=== PATIENT | male | born 1960 | race Caucasian/White ===

== ENCOUNTER 2021-05-20 22:10 | Inpatient (IN) | payer OTHER ==
--- NOTE | 2021-05-20 23:24 | Emergency Department Report ---
ED Shortness of Breath HPI - General Chief Complaint: Dyspnea/Respdistress Stated Complaint: SHORTNESS OF BREATH Time Seen by Provider: 05/20/21 23:19 Source: patient, EMS, old records reviewed (No previous medical record available for review) Mode of arrival: Stretcher Limitations: No Limitations - History of Present Illness Initial Comments: 60-year-old male with a past medical history morbid obesity, CHF, hypertension, recently diagnosed renal insufficiency, and sleep apnea (CPAP at night) presents to the hospital complaining of shortness of breath x1 day. Patient experiencing dyspnea worse on exertion. Patient called EMS from work. EMS reports room air saturation in low 90s. Patient placed on supplemental oxygen with improvement in oxygen saturation, shortness of breath, and chest tightness. Patient has been compliant with his medications. He states he was last admitted to in January 2021 to [facility] and underwent cardiac work-up including stress testing. He was diagnosed with CHF and denies diagnosis of ischemia. His physicians are affiliated with [facility]. He is vaccinated for Covid and has scheduled a booster this week. He denies fever. Current meds as per patient include: Hydralazine 50 mg 3 times daily Carvedilol 25 mg twice daily Metoprolol 1000 mg twice daily Aspirin 81 mg daily Spironolactone 25 daily Losartan 100 mg daily Glipizide 5 mg daily - Related Data Allergies Allergy/AdvReac Type Severity Reaction Status Date / Time No Known Allergies Allergy Verified 05/20/21 23:05 ED Review of Systems ROS: Stated complaint: SHORTNESS OF BREATH Other details as noted in HPI Comment: All other systems reviewed and negative ED Past Medical Hx - Past Medical History Hx Hypertension: Yes Hx Congestive Heart Failure: Yes Hx Diabetes: Yes ED Physical Exam - General Limitations: No Limitations - Other Other exam information: General: No acute distress Head: Atraumatic Eyes: normal appearance ENT: Moist mucous membranes Neck: Normal appearance, no midline tenderness Chest: Clear to auscultation bilaterally CV: Regular rate and rhythm Abdomen: Soft, normal bowel sounds, nontender, nondistended, no rebound or guarding Back: Normal inspection Extremity: Normal inspection, full range of motion, trace lower extremity pitting edema Neuro: Alert O x 3, no facial asymmetry, speech clear, no gross motor sensory deficit Psych: Appropriate behavior Skin: No rash ED Course Vital Signs 05/20/21 05/21/21 05/21/21 23:07 00:00 00:54 Temperature 98.0 F Pulse Rate 111 H 120 H 115 H Respiratory 22 21 31 H Rate Blood Pressure Blood Pressure 174/108 179/114 194/144 [Left] O2 Sat by Pulse 98 91 91 Oximetry 05/21/21 05/21/21 05/21/21 01:28 02:05 03:53 Temperature Pulse Rate 100 H 101 H 106 H Respiratory 28 H 31 H Rate Blood Pressure 175/104 Blood Pressure 161/107 161/112 [Left] O2 Sat by Pulse 94 94 Oximetry - Consultations Consultation #1: 05/21/21 03:04 . Case discussed with Dr. Savage data integration developer vascular surgeon to determine if patient is a candidate for EKOS. Will evaluate patient during admission ED Medical Decision Making - Lab Data Result diagrams: 05/20/21 23:41 05/20/21 23:41 Lab Results 05/20/21 05/20/21 05/20/21 Range/Units 23:41 23:41 23:41 WBC 7.0 (4.5-11.0) K/mm3 RBC 4.55 (3.65-5.03) M/mm3 Hgb 12.4 (11.8-15.2) gm/dl Hct 39.6 (35.5-45.6) % MCV 87 (84-94) fl MCH 27 L (28-32) pg MCHC 32 (32-34) % RDW 15.4 H (13.2-15.2) % Plt Count 223 (140-440) K/mm3 Lymph % (Auto) 28.7 (13.4-35.0) % [place] % (Auto) 9.1 H (0.0-7.3) % Eos % (Auto) 2.4 (0.0-4.3) % Baso % (Auto) 0.5 (0.0-1.8) % Lymph # (Auto) 2.0 (1.2-5.4) K/mm3 [place] # (Auto) 0.6 (0.0-0.8) K/mm3 Eos # (Auto) 0.2 (0.0-0.4) K/mm3 Baso # (Auto) 0.0 (0.0-0.1) K/mm3 Seg Neutrophils % 59.3 (40.0-70.0) % Seg Neutrophils # 4.1 (1.8-7.7) K/mm3 PT 15.2 H (12.2-14.9) Sec. INR 1.08 (0.87-1.13) APTT 33.5 (24.2-36.6) Sec. Sodium 141 (137-145) mmol/L Potassium 4.4 (3.6-5.0) mmol/L Chloride 108.1 H (98-107) mmol/L Carbon Dioxide 19 L (22-30) mmol/L Anion Gap 18 mmol/L BUN 20 (9-20) mg/dL Creatinine 1.6 H (0.8-1.3) mg/dL Estimated GFR 45 ml/min BUN/Creatinine Ratio 13 % Glucose 118 H (75-100) mg/dL Calcium 9.5 (8.4-10.2) mg/dL Total Bilirubin 0.50 (0.1-1.2) mg/dL AST 25 (5-40) units/L ALT 17 (7-56) units/L Alkaline Phosphatase 97 (35-129) units/L Total Creatine Kinase 230 H (55-170) units/L CK-MB (CK-2) 2.3 (0.0-4.0) ng/mL CK-MB (CK-2) Rel Index 1.0 (0-4) Troponin T < 0.010 (0.00-0.029) ng/mL NT-Pro-B Natriuret Pep (0-900) pg/mL Total Protein 8.1 (6.3-8.2) g/dL Albumin 4.3 (3.9-5) g/dL Albumin/Globulin Ratio 1.1 % 05/20/21 Range/Units 23:41 WBC (4.5-11.0) K/mm3 RBC (3.65-5.03) M/mm3 Hgb (11.8-15.2) gm/dl Hct (35.5-45.6) % MCV (84-94) fl MCH (28-32) pg MCHC (32-34) % RDW (13.2-15.2) % Plt Count (140-440) K/mm3 Lymph % (Auto) (13.4-35.0) % [place] % (Auto) (0.0-7.3) % Eos % (Auto) (0.0-4.3) % Baso % (Auto) (0.0-1.8) % Lymph # (Auto) (1.2-5.4) K/mm3 [place] # (Auto) (0.0-0.8) K/mm3 Eos # (Auto) (0.0-0.4) K/mm3 Baso # (Auto) (0.0-0.1) K/mm3 Seg Neutrophils % (40.0-70.0) % Seg Neutrophils # (1.8-7.7) K/mm3 PT (12.2-14.9) Sec. INR (0.87-1.13) APTT (24.2-36.6) Sec. Sodium (137-145) mmol/L Potassium (3.6-5.0) mmol/L Chloride (98-107) mmol/L Carbon Dioxide (22-30) mmol/L Anion Gap mmol/L BUN (9-20) mg/dL Creatinine (0.8-1.3) mg/dL Estimated GFR ml/min BUN/Creatinine Ratio % Glucose (75-100) mg/dL Calcium (8.4-10.2) mg/dL Total Bilirubin (0.1-1.2) mg/dL AST (5-40) units/L ALT (7-56) units/L Alkaline Phosphatase (35-129) units/L Total Creatine Kinase (55-170) units/L CK-MB (CK-2) (0.0-4.0) ng/mL CK-MB (CK-2) Rel Index (0-4) Troponin T (0.00-0.029) ng/mL NT-Pro-B Natriuret Pep 462.9 (0-900) pg/mL Total Protein (6.3-8.2) g/dL Albumin (3.9-5) g/dL Albumin/Globulin Ratio % - EKG Data -: EKG Interpreted by Tn EKG shows normal: sinus rhythm, intervals (QTC 450), QRS complexes (QRS duration 82), ST-T waves (no stemi) Rate: tachycardia (120) - EKG Data When compared to previous EKG there are: previous EKG unavailable - Radiology Data Radiology results: report reviewed CHEST 1 VIEW 05/20/2021 11:10 PM INDICATION / CLINICAL INFORMATION: Dyspnea. COMPARISON: None available. FINDINGS: SUPPORT DEVICES: None. HEART / MEDIASTINUM: No significant abnormality. LUNGS / PLEURA: There is prompt the right hilum with rounded density measuring 4.5 cm. Mild increased pulmonary vascularity No pneumothorax. ADDITIONAL FINDINGS: No significant additional findings. IMPRESSION: 1. Rounded density in the right hilum could represent vascularity however could also represent right hilar mass or adenopathy. This area measures 4.5 cm. Follow-up with CT is recommended. CTA CHEST WITH CONTRAST INDICATION / CLINICAL INFORMATION: Abnormal CXR, Pt complains of S.O.B.. TECHNIQUE: Axial CT images were obtained through the chest after injection of IV contrast. 3 plane MIP and/or 3D reconstructions were produced. All CT scans at this location are performed using CT dose reduction for ALARA by means of automated exposure control. COMPARISON: None available. FINDINGS: There is extensive thrombus within bilateral pulmonary arteries extending from the distal main pulmonary arteries into the pulmonary artery branches in the upper and lower lungs. No significant cardiomegaly or definite cardiac strain. No focal consolidation. Minimal atelectasis in left lower lung. No dominant adenopathy. No acute bone findings IMPRESSION: 1. Extensive bilateral PTE's - Medical Decision Making 60-year-old male presents to the hospital complaining of shortness of breath x1 day worse with exertion. Patient does have mild tachycardia. Patient's O2 sat was in the high 80s on 4 L nasal cannula oxygen. On 5 L nasal cannula oxygen O2 sat is 93 to 94%. CT angiogram confirms bilateral central pulmonary emboli. Heparin drip initiated. Case discussed with vascular surgeon who will evaluate patient in a.m. IV labetalol provided for hypertension. Patient states he takes a muscle relaxant for chronic left shoulder issues and was provided a dose of Flexeril Critical Care Time: Yes Critical care time in (mins) excluding proc time.: 35 Critical care attestation.: If time is entered above; I have spent that time in minutes in the direct care of this critically ill patient, excluding procedure time. Critical Care Time: 35 Minutes of critical care time excluding procedures were used in the care of the patient. I came immediately to the bedside upon patient's arrival. I obtained history from EMS at the bedside. I discussed treatment plan with the nursing team members. Patient required multiple interventions and reassessments. Vascular surgery consulted hospitalist to admit ED Disposition Clinical Impression: Acute respiratory failure, Bilateral pulmonary embolism, Morbid obesity, Sleep apnea, Uncontrolled hypertension, History of CHF (congestive heart failure), CRI (chronic renal insufficiency) Disposition: ADMITTED INPATIENT Is pt being admited?: Yes Instructions: Hypertension (ED) Time of Disposition: 03:06 (Dr Tate/hospitalist)
[2021-05-21 00:08] LABS: Basophils % (Auto) 0.5 % (0.0-1.8); Eosinophils # (Auto) 0.2 K/mm3 (0.0-0.4); Eosinophils % (Auto) 2.4 % (0.0-4.3); Hematocrit 39.6 % (35.5-45.6); Hemoglobin 12.4 gm/dl (11.8-15.2); Lymphocytes % (Auto) 28.7 % (13.4-35.0); Mean Corpuscular HGB Conc 32 % (32-34); Mean Corpuscular Volume 87 fl (84-94); Monocytes # (Auto) 0.6 K/mm3 (0.0-0.8); Monocytes % (Auto) 9.1 % (0.0-7.3); Platelet Count 223 K/mm3 (140-440); Red Blood Count 4.55 M/mm3 (3.65-5.03); Red Cell Distribution Width 15.4 % (13.2-15.2)
--- NOTE | 2021-05-21 00:18 | XRay Report ---
CHEST 1 VIEW 05/20/2021 11:10 PM INDICATION / CLINICAL INFORMATION: Dyspnea. COMPARISON: None available. FINDINGS: SUPPORT DEVICES: None. HEART / MEDIASTINUM: No significant abnormality. LUNGS / PLEURA: There is prompt the right hilum with rounded density measuring 4.5 cm. Mild increased pulmonary vascularity No pneumothorax. ADDITIONAL FINDINGS: No significant additional findings. IMPRESSION: 1. Rounded density in the right hilum could represent vascularity however could also represent right hilar mass or adenopathy. This area measures 4.5 cm. Follow-up with CT is recommended. Signer Name: Cecilio Becerra MD Signed: 05/21/2021 12:13 AM Workstation Name: [id number]
[2021-05-21 00:27] LABS: INR 1.08 (0.87-1.13)
[2021-05-21 00:28] LABS: Partial Thromboplastin Time 33.5 Sec. (24.2-36.6)
[2021-05-21 02:05] LABS: Alanine Aminotransferase 17 units/L (7-56); Albumin 4.3 g/dL (3.9-5); BUN/Creatinine Ratio 13; Blood Urea Nitrogen 20 mg/dL (9-20); Calcium 9.5 mg/dL (8.4-10.2); Creatine Kinase MB 2.3 ng/mL (0.0-4.0); Hemolysis Index 6
[2021-05-21] MEDS ORDERED: HEPARIN 10,000 UNITS/10 ML VIAL IV ONE (02:51)
--- NOTE | 2021-05-21 02:56 | Cat Scan Report ---
CTA CHEST WITH CONTRAST INDICATION / CLINICAL INFORMATION: Abnormal CXR, Pt complains of S.O.B.. TECHNIQUE: Axial CT images were obtained through the chest after injection of IV contrast. 3 plane SC P and/or 3D reconstructions were produced. All CT scans at this location are performed using CT dose reduction for ALARA by means of automated exposure control. COMPARISON: None available. FINDINGS: There is extensive thrombus within bilateral pulmonary arteries extending from the distal main pulmon marilin arteries into the pulmonary artery branches in the upper and lower lungs. No significant cardiome carolee or definite cardiac strain. No focal consolidation. Minimal atelectasis in left lower lung. No d ominant adenopathy. No acute bone findings IMPRESSION: 1. Extensive bilateral PTE's IMPORTANT FINDING: Time of Communication (GLOBAL PROFESSIONAL/CDT): 151 Licensed Practitioner Receiving Report: 155 Signer Name: Cecilio Becerra MD Signed: 05/21/2021 2:51 AM Workstation Name: [id number]
[2021-05-21] MEDS ORDERED: CYCLOBENZAPRINE 10 MG TAB PO ONE (03:00)
[2021-05-21] MEDS: HEPARIN/ 0.45% NACL DRIP 25,000 UNIT/500 ML BAG IV SCH ×2 (03:15→21:02)
[2021-05-21] MEDS ORDERED: ALBUTEROL 2.5 MG/3 ML NEBU IH PRN (04:29)
[2021-05-21] MEDS ORDERED: DEXTROSE 50% IN WATER (25GM) 50 ML SYRINGE IV PRN (04:29)
[2021-05-21] MEDS ORDERED: ONDANSETRON 4 MG/2 ML INJ IV PRN (04:29)
--- NOTE | 2021-05-21 04:39 | History and Physical Report ---
History of Present Illness Date of examination: 05/21/21 Date of admission: 05/21/21 Chief complaint: Shortness of breath History of present illness: 60-year-old male with a past medical history morbid obesity, CHF, hypertension, recently diagnosed renal insufficiency, and sleep apnea (CPAP at night) presents to the hospital complaining of shortness of breath x1 day. Patient experiencing dyspnea worse on exertion. Patient called EMS from work. EMS reports room air saturation in low 90s. Patient placed on supplemental oxygen with improvement in oxygen saturation, shortness of breath, and chest tightness. Patient has been compliant with his medications. He states he was last admitted to in January 2021 to [facility] and underwent cardiac work-up including stress testing. He was diagnosed with CHF and denies diagnosis of ischemia. His physicians are affiliated with [facility]. He is vaccinated for Covid and has scheduled a booster this week. He denies fever. patient does have mild tachycardia. Patient's O2 sat was in the high 80s on 4 L nasal cannula oxygen. On 5 L nasal cannula oxygen O2 sat is 93 to 94%. CT angiogram confirms bilateral central pulmonary emboli. Heparin drip initiated. Case discussed with vascular surgeon who will evaluate patient in a.m. IV labetalol provided for hypertension. Past History Past Medical History: diabetes, heart failure, hypertension, other (Morbid obesity, sleep apnea) Medications and Allergies Allergies Allergy/AdvReac Type Severity Reaction Status Date / Time No Known Allergies Allergy Verified 05/20/21 23:05 Active Meds: Active Medications Heparin Sodium/Sodium Chloride (Heparin/ 0.45% Nacl-25,000 Unit/500 Ml) 25,000 unit in 500 mls @ 30 mls/hr IV TITR YENNI; Protocol Last Admin: 05/21/21 03:15 Dose: 1,500 units/hr, 30 mls/hr Review of Systems All systems: negative Ears, nose, mouth and throat: odynophagia Cardiovascular: orthopnea, shortness of breath, high blood pressure Respiratory: shortness of breath, dyspnea on exertion, wheezing, snoring, other (Sleep apnea) Exam - Constitutional Vitals: Temp Pulse Resp BP Pulse Ox 98.0 F 106 H 31 H 161/112 94 05/20/21 23:07 05/21/21 03:53 05/21/21 03:53 05/21/21 03:53 05/21/21 03:53 General appearance: Present: no acute distress, well-nourished - EENT Eyes: Present: PERRL ENT: hearing intact, clear oral mucosa - Neck Neck: Present: supple, normal ROM - Respiratory Respiratory effort: normal Respiratory: bilateral: rales - Cardiovascular Heart Sounds: Present: S1 & S2. Absent: rub, click - Extremities Extremities: pulses symmetrical Extremity abnormal: edema Peripheral Pulses: within normal limits - Abdominal General gastrointestinal: Present: soft, non-tender, non-distended, normal bowel sounds Male genitourinary: Present: normal - Integumentary Integumentary: Present: clear, warm, dry - Musculoskeletal Musculoskeletal: gait normal, strength equal bilaterally - Psychiatric Psychiatric: appropriate mood/affect, intact judgment & insight - Neurologic Neurologic: CNII-XII intact, moves all extremities HEART Score - HEART Score Troponin: Troponin T 0.014 ng/mL (0.00-0.029) 05/21/21 02:53 Results - Labs CBC & Chem 7: 05/20/21 23:41 05/20/21 23:41 Labs: Laboratory Last Values WBC 7.0 K/mm3 (4.5-11.0) 05/20/21 23:41 RBC 4.55 M/mm3 (3.65-5.03) 05/20/21 23:41 Hgb 12.4 gm/dl (11.8-15.2) 05/20/21 23:41 Hct 39.6 % (35.5-45.6) 05/20/21 23:41 MCV 87 fl (84-94) 05/20/21 23:41 MCH 27 pg (28-32) L 05/20/21 23:41 MCHC 32 % (32-34) 05/20/21 23:41 RDW 15.4 % (13.2-15.2) H 05/20/21 23:41 Plt Count 223 K/mm3 (140-440) 05/20/21 23:41 Lymph % (Auto) 28.7 % (13.4-35.0) 05/20/21 23:41 Bent % (Auto) 9.1 % (0.0-7.3) H 05/20/21 23:41 Eos % (Auto) 2.4 % (0.0-4.3) 05/20/21 23:41 Baso % (Auto) 0.5 % (0.0-1.8) 05/20/21 23:41 Lymph # (Auto) 2.0 K/mm3 (1.2-5.4) 05/20/21 23:41 Bent # (Auto) 0.6 K/mm3 (0.0-0.8) 05/20/21 23:41 Eos # (Auto) 0.2 K/mm3 (0.0-0.4) 05/20/21 23:41 Baso # (Auto) 0.0 K/mm3 (0.0-0.1) 05/20/21 23:41 Seg Neutrophils % 59.3 % (40.0-70.0) 05/20/21 23:41 Seg Neutrophils # 4.1 K/mm3 (1.8-7.7) 05/20/21 23:41 PT 15.2 Sec. (12.2-14.9) H 05/20/21 23:41 INR 1.08 (0.87-1.13) 05/20/21 23:41 APTT 33.5 Sec. (24.2-36.6) 05/20/21 23:41 Sodium 141 mmol/L (137-145) 05/20/21 23:41 Potassium 4.4 mmol/L (3.6-5.0) 05/20/21 23:41 Chloride 108.1 mmol/L (98-107) H 05/20/21 23:41 Carbon Dioxide 19 mmol/L (22-30) L 05/20/21 23:41 Anion Gap 18 mmol/L 05/20/21 23:41 BUN 20 mg/dL (9-20) 05/20/21 23:41 Creatinine 1.6 mg/dL (0.8-1.3) H 05/20/21 23:41 Estimated GFR 45 ml/min 05/20/21 23:41 BUN/Creatinine Ratio 13 % 05/20/21 23:41 Glucose 118 mg/dL (75-100) H 05/20/21 23:41 Calcium 9.5 mg/dL (8.4-10.2) 05/20/21 23:41 Total Bilirubin 0.50 mg/dL (0.1-1.2) 01/24/22 23:41 AST 25 units/L (5-40) 05/20/21 23:41 ALT 17 units/L (7-56) 05/20/21 23:41 Alkaline Phosphatase 97 units/L (35-129) 05/20/21 23:41 Total Creatine Kinase 230 units/L (55-170) H 05/20/21 23:41 CK-MB (CK-2) 2.3 ng/mL (0.0-4.0) 05/20/21 23:41 CK-MB (CK-2) Rel Index 1.0 (0-4) 05/20/21 23:41 Troponin T 0.014 ng/mL (0.00-0.029) 05/21/21 02:53 NT-Pro-B Natriuret Pep 462.9 pg/mL (0-900) 05/20/21 23:41 Total Protein 8.1 g/dL (6.3-8.2) 05/20/21 23:41 Albumin 4.3 g/dL (3.9-5) 05/20/21 23:41 Albumin/Globulin Ratio 1.1 % 05/20/21 23:41 - Imaging and Cardiology Chest x-ray: report reviewed CT scan - chest: report reviewed Assessment and Plan VTE prophylaxis?: Chemical Plan of care discussed with patient/family: Yes - Patient Problems (1) Acute respiratory failure Current Visit: Yes Status: Acute Plan to address problem: Admit to the IMCU. Oxygen via nasal cannula 3 to 5 L/min. DuoNeb by nebulizer every 4 hours. Albuterol via nebulizer every 4 hours as needed. Lasix 40 mg IV daily. Echocardiogram. Heparin drip. Vascular surgery evaluation (2) Bilateral pulmonary embolism Current Visit: Yes Status: Acute Plan to address problem: Oxygen via nasal cannula 3 to 5 L/min. DuoNeb by nebulizer every 4 hours. Albuterol via nebulizer every 4 hours as needed. Echocardiogram. Heparin drip. Vascular surgery evaluation (3) CRI (chronic renal insufficiency) Current Visit: Yes Status: Acute Plan to address problem: Avoid nephrotoxic drugs. Renally dose medication. Recheck BMP in the morning if needed will consult nephrology (4) History of CHF (congestive heart failure) Current Visit: Yes Status: Acute Plan to address problem: Fluid restriction. Daily weight. Maintain input output. Echocardiogram. Lasix 40 mg IV daily. Cardiology evaluation (5) Morbid obesity Current Visit: Yes Status: Acute Plan to address problem: Patient counseled regarding weight reduction. Outpatient follow-up with bariatric surgery (6) Sleep apnea Current Visit: Yes Status: Acute Plan to address problem: Oxygen via nasal cannula 3 to 5 L/min. DuoNeb by nebulizer every 4 hours. Albuterol via nebulizer every 4 hours as needed. (7) Uncontrolled hypertension Current Visit: Yes Status: Acute Plan to address problem: IV labetalol for hypertension. Lisinopril 5 mg p.o. daily. Continue home medication (8) DVT prophylaxis Current Visit: Yes Status: Acute Plan to address problem: Patient is on heparin drip per DVT prophylaxis. Pepcid 20 mg p.o. twice daily for GI prophylaxis. Patient is a full code
[2021-05-21] MEDS ORDERED: hydrALAZINE 20 MG/1 ML INJ IV PRN (04:41)
[2021-05-21] MEDS: INSULIN LISPRO 100 UNIT/ML SUB-Q SCH ×4 (08:17→21:09)
[2021-05-21] MEDS ORDERED: HEPARIN 10,000 UNITS/10 ML VIAL IV PRN (08:43)
--- NOTE | 2021-05-21 09:00 | Electrocardiograph Report ---
[facility] Test Date: 2021-05-20 Test Time: 23:38:35 Pat Name: KARIN CALLOWAY Department: Room: A264 1 Gender: M Plater Barrel: MARKUS : 1960 Requested By: HALEIGH HOLLOWAY Order Number: [id number] Reading MD: Durga Penn Measurements Intervals [place] Rate: 120 P: 53 TX: 140 QRS: 97 QRSD: 82 T: 25 QT: 318 QTc: 450 Interpretive Statements Sinus tachycardia nonspecific st-t No previous ECG available for comparison Electronically Signed On 05-21-2021 9:00:00 EST by Durga Penn
[2021-05-21] MEDS ORDERED: SODIUM CHLORIDE 0.9% 50 ML IVPB IV PRN (09:02)
[2021-05-21] MEDS ORDERED: LISINOPRIL 5 MG TAB PO SCH (10:00)
[2021-05-21] MEDS: FAMOTIDINE 20 MG TAB PO SCH ×2 (10:10→21:02)
[2021-05-21] MEDS: FUROSEMIDE 40 MG/4 ML INJ IV SCH ×2 (10:10→10:26)
[2021-05-21] MEDS: MORPHINE 2 MG/1 ML INJ IV PRN (10:10)
[2021-05-21] MEDS: ACETAMINOPHEN 325 MG TAB PO PRN (10:23)
[2021-05-21] MEDS: METOPROLOL TARTRATE 50 MG TAB PO SCH ×2 (11:36→21:02)
--- NOTE | 2021-05-21 13:45 | Progress Note ---
Assessment and Plan Assessment and plan: History of present illness: 60-year-old male with a past medical history morbid obesity, CHF, hypertension, recently diagnosed renal insufficiency, and sleep apnea (CPAP at night) presents to the hospital complaining of shortness of breath x1 day. Patient experiencing dyspnea worse on exertion. Patient called EMS from work. EMS reports room air saturation in low 90s. Patient placed on supplemental oxygen with improvement in oxygen saturation, shortness of breath, and chest tightness. Patient has been compliant with his medications. He states he was last admitted to in January 2021 to [facility] and underwent cardiac work-up including stress testing. He was diagnosed with CHF and denies diagnosis of ischemia. His physicians are affiliated with [facility]. He is vaccinated for Covid and has scheduled a booster this week. He denies fever. Admitted to [facility] Hospital Course: 05/21: Continue heparin gtt, pending ECHO. CT angiogram appears to demonstrate some right heart strain on my read but will await ECHO. Patient hemodynamically stable and in no distress. Pending cardiology and vascular evaluation. Assessment and Plan: (1) Acute respiratory failure with hypoxia Current Visit: Yes Status: Acute Plan to address problem: Oxygen via nasal cannula, wean as sats tolerate. CT angiogram confirms bilateral central pulmonary emboli. DuoNeb by nebulizer every 4 hours. Albuterol via nebulizer every 4 hours as needed. Lasix 40 mg IV daily. Echocardiogram. Heparin drip. Vascular surgery evaluation Cardiology consultation (2) Bilateral pulmonary embolism Current Visit: Yes Status: Acute Plan to address problem: Oxygen via nasal cannula 3 to 5 L/min. CT angiogram confirms bilateral central pulmonary emboli. DuoNeb by nebulizer every 4 hours. Albuterol via nebulizer every 4 hours as needed. Echocardiogram. Heparin drip. Vascular surgery evaluation Cardiology consultation (3) Chronic Kidney Disease Current Visit: Yes Status: Acute Plan to address problem: Avoid nephrotoxic drugs. Renally dose medication. Recheck BMP in the morning if needed will consult nephrology (4) History of CHF (congestive heart failure) Current Visit: Yes Status: Acute Plan to address problem: Fluid restriction. Daily weight. Maintain input output. Echocardiogram. Lasix 40 mg IV daily. Cardiology evaluation (5) Morbid obesity Current Visit: Yes Status: Acute Plan to address problem: Patient counseled regarding weight reduction. Outpatient follow-up with bariatric surgery (6) Sleep apnea Current Visit: Yes Status: Acute Plan to address problem: Oxygen via nasal cannula 3 to 5 L/min. DuoNeb by nebulizer every 4 hours. Albuterol via nebulizer every 4 hours as needed. (7) Uncontrolled hypertension Current Visit: Yes Status: Acute Plan to address problem: IV labetalol for hypertension. Lisinopril 5 mg p.o. daily. Continue home medication (8) DVT prophylaxis Current Visit: Yes Status: Acute Plan to address problem: Patient is on heparin drip per DVT prophylaxis. Pepcid 20 mg p.o. twice daily for GI prophylaxis. Patient is a full code #Advance care planning Disease education conducted, care plan discussed, diagnoses discussed, prognosis discussed, patient is full code, patient acknowledges understanding and agree with care plan, +30 minutes. Dispo: IMCU The high probability of a clinically significant, sudden or life threatening deterioration of the [cardiac, pulmonary] system(s) required my full and direct attention, intervention and personal management. The aggregate critical care time was [60] minutes. This time is in addition to time spent performing reported procedures but includes the following: [x] Data Review and interpretation [x] Patient assessment and monitoring of vital signs [x] Documentation [x] Medication orders and management History Interval history: No complaints on my encounter. Remains on nasal cannula. Vitals appeared to be stable on bedside monitor. Patient questions answered to satisfaction. Hospitalist Physical - Physical exam Narrative exam: General appearance: Present: no acute distress, well-nourished, morbid obesity, currently on nasal cannula. - EENT Eyes: Present: PERRL ENT: hearing intact, clear oral mucosa - Neck Neck: Present: supple, normal ROM - Respiratory Respiratory effort: normal Respiratory: bilateral: rales - Cardiovascular Heart Sounds: Present: S1 & S2. Absent: rub, click - Extremities Extremities: pulses symmetrical Extremity abnormal: edema Peripheral Pulses: within normal limits - Abdominal General gastrointestinal: Present: soft, non-tender, non-distended, normal bowel sounds Male genitourinary: Present: normal - Integumentary Integumentary: Present: clear, warm, dry - Musculoskeletal Musculoskeletal: gait normal, strength equal bilaterally - Psychiatric Psychiatric: appropriate mood/affect, intact judgment & insight - Neurologic Neurologic: CNII-XII intact, moves all extremities - Constitutional Vitals: Temp Pulse Resp BP Pulse Ox 97.4 F L 89 18 175/108 95 05/21/21 08:00 05/21/21 13:00 05/21/21 13:00 05/21/21 13:00 05/21/21 13:00 General appearance: Present: no acute distress, well-nourished HEART Score - HEART Score Troponin: Troponin T 0.028 ng/mL (0.00-0.029) 05/21/21 05:09 Results - Labs CBC & Chem 7: 05/20/21 23:41 05/20/21 23:41 Labs: Laboratory Last Values WBC 7.0 K/mm3 (4.5-11.0) 05/20/21 23:41 RBC 4.55 M/mm3 (3.65-5.03) 05/20/21 23:41 Hgb 12.4 gm/dl (11.8-15.2) 05/20/21 23:41 Hct 39.6 % (35.5-45.6) 05/20/21 23:41 MCV 87 fl (84-94) 05/20/21 23:41 MCH 27 pg (28-32) L 05/20/21 23:41 MCHC 32 % (32-34) 05/20/21 23:41 RDW 15.4 % (13.2-15.2) H 05/20/21 23:41 Plt Count 223 K/mm3 (140-440) 05/20/21 23:41 Lymph % (Auto) 28.7 % (13.4-35.0) 05/20/21 23:41 [place] % (Auto) 9.1 % (0.0-7.3) H 05/20/21 23:41 Eos % (Auto) 2.4 % (0.0-4.3) 05/20/21 23:41 Baso % (Auto) 0.5 % (0.0-1.8) 05/20/21 23:41 Lymph # (Auto) 2.0 K/mm3 (1.2-5.4) 05/20/21 23:41 [place] # (Auto) 0.6 K/mm3 (0.0-0.8) 05/20/21 23:41 Eos # (Auto) 0.2 K/mm3 (0.0-0.4) 05/20/21 23:41 Baso # (Auto) 0.0 K/mm3 (0.0-0.1) 05/20/21 23:41 Seg Neutrophils % 59.3 % (40.0-70.0) 05/20/21 23:41 Seg Neutrophils # 4.1 K/mm3 (1.8-7.7) 05/20/21 23:41 PT 15.2 Sec. (12.2-14.9) H 05/20/21 23:41 INR 1.08 (0.87-1.13) 05/20/21 23:41 APTT 33.5 Sec. (24.2-36.6) 05/20/21 23:41 Sodium 141 mmol/L (137-145) 05/20/21 23:41 Potassium 4.4 mmol/L (3.6-5.0) 05/20/21 23:41 Chloride 108.1 mmol/L (98-107) H 05/20/21 23:41 Carbon Dioxide 19 mmol/L (22-30) L 05/20/21 23:41 Anion Gap 18 mmol/L 05/20/21 23:41 BUN 20 mg/dL (9-20) 05/20/21 23:41 Creatinine 1.6 mg/dL (0.8-1.3) H 05/20/21 23:41 Estimated GFR 45 ml/min 05/20/21 23:41 BUN/Creatinine Ratio 13 % 05/20/21 23:41 Glucose 118 mg/dL (75-100) H 05/20/21 23:41 POC Glucose 107 mg/dL (70-105) H 05/21/21 12:30 Calcium 9.5 mg/dL (8.4-10.2) 05/20/21 23:41 Total Bilirubin 0.50 mg/dL (0.1-1.2) 05/20/21 23:41 AST 25 units/L (5-40) 05/20/21 23:41 ALT 17 units/L (7-56) 05/20/21 23:41 Alkaline Phosphatase 97 units/L (35-129) 05/20/21 23:41 Total Creatine Kinase 230 units/L (55-170) H 05/20/21 23:41 CK-MB (CK-2) 2.3 ng/mL (0.0-4.0) 05/20/21 23:41 CK-MB (CK-2) Rel Index 1.0 (0-4) 05/20/21 23:41 Troponin T 0.028 ng/mL (0.00-0.029) 05/21/21 05:09 NT-Pro-B Natriuret Pep 462.9 pg/mL (0-900) 05/20/21 23:41 Total Protein 8.1 g/dL (6.3-8.2) 05/20/21 23:41 Albumin 4.3 g/dL (3.9-5) 05/20/21 23:41 Albumin/Globulin Ratio 1.1 % 05/20/21 23:41 Active Medications - Current Medications Current Medications: Generic Name Dose Route Start Last Admin Trade Name Freq PRN Reason Stop Dose Admin Acetaminophen 650 mg 05/21/21 04:29 05/21/21 10:23 Acetaminophen 325 Mg Tab PO 650 mg Q4H PRN Administration Pain MILD(1-3)/Fever >100.5/KENNEDY Albuterol 2.5 mg 05/21/21 04:29 Albuterol 2.5 Mg/3 Ml Nebu IH Q4HRT PRN Shortness Of Breath Albuterol/Ipratropium 1 ampul 05/21/21 08:00 Ipratropium/Albuterol Sulfate 3 Ml Ampul.Neb IH Q6HRT YENNI Dextrose 0 ml 05/21/21 04:29 Dextrose 50% In Water (25gm) 50 Ml Syringe IV Q30MIN PRN Hypoglycemia Protocol Famotidine 20 mg 05/21/21 10:00 05/21/21 10:10 Famotidine 20 Mg Tab PO 20 mg BID YENNI Administration Heparin Sodium (Porcine) 5,000 unit 05/21/21 08:43 Heparin 10,000 Units/10 Ml Vial IV Q6H PRN Anti-Xa Assay < 0.1 units/ml Hydralazine HCl 50 mg 05/21/21 14:00 Hydralazine 25 Mg Tab PO Q8HR YENNI Hydromorphone HCl 0.5 mg 05/21/21 04:29 Hydromorphone 1 Mg/1 Ml Inj IV Q3H PRN Pain , Severe (7-10) Heparin Sodium/Sodium Chloride 25,000 unit in 500 mls @ 30 mls/hr 05/21/21 03:00 05/21/21 03:15 Heparin/ 0.45% Nacl-25,000 Unit/500 Ml IV 1,500 units/hr TITR YENNI 30 mls/hr Administration Protocol 1,500 UNITS/HR Insulin Human Lispro 0 unit 05/21/21 07:30 05/21/21 08:17 Insulin Lispro 100 Unit/Ml SUB-Q Not Given ACHS YENNI Protocol Isosorbide Mononitrate 30 mg 05/21/21 11:00 05/21/21 11:36 Isosorbide Mononitrate Er 30 Mg Tab PO 30 mg QDAY YENNI Administration Labetalol HCl 10 mg 05/21/21 04:42 05/21/21 10:36 Labetalol 20 Mg/4 Ml Inj IV 10 mg Q6H PRN Administration Blood Pressure Metoprolol Tartrate 50 mg 05/21/21 11:00 05/21/21 11:36 Metoprolol Tartrate 50 Mg Tab PO 50 mg BID YENNI Administration Morphine Sulfate 2 mg 05/21/21 04:29 Morphine 2 Mg/1 Ml Inj IV Q4H PRN Pain, Moderate (4-6) Ondansetron HCl 4 mg 05/21/21 04:29 Ondansetron 4 Mg/2 Ml Inj IV Q8H PRN Nausea And Vomiting Sodium Chloride 10 ml 05/21/21 10:00 05/21/21 10:37 Sodium Chloride 0.9% 10 Ml Flush Syringe IV 10 ml BID YENNI Administration Sodium Chloride 10 ml 05/21/21 04:29 Sodium Chloride 0.9% 10 Ml Flush Syringe IV PRN PRN LINE FLUSH Sodium Chloride 10 ml 05/21/21 09:02 Sodium Chloride 0.9% 50 Ml Ivpb IV PRN PRN FLUSH Nutrition/Malnutrition Assess - Dietary Evaluation Nutrition/Malnutrition Findings: Nutrition Notes Start: 05/21/21 11:45 Freq: Status: Active Protocol: Document 05/21/21 11:45 ABIGAIL (Rec: 05/21/21 11:51 ABIGAIL [id number]) Nutrition Notes Need for Assessment generated from: MD Order,Education Initial or Follow up Brief Note Current Diagnosis CKD(stage I-IV),Hypertension, Respiratory Failure Other Pertinent Diagnosis Bilateral pulmonary embolism, CHF. Current Diet Cardiac/Consistent Carbohydrates Diet (since B ). Height 5 ft 11 in Weight 179.623 kg [place] Body Weight (kg) 78.18 BMI 55.2 Weight change and time frame None reported at admission. Weight Status Morbidly Obese Subjective/Other Information RD consult for nutrition education. Pt still on ED, not a candidate for Nutrition Education at the time, will assess feasibility on F/U. No reports available on Pt's PO intake of meals at the time . Percent of energy/protein needs met: Prescribed Cardiac/Consistent Carbohydrates Diet provides for energy/protein needs (1, 977 Kcal/86 g) during LOS. Nutrition Intervention Follow-Up By: 05/28/21 Additional Comments Nutrition education will be provided on F/U if feasible. Continue monitoring food tolerance, %PO intake of meals , and BM.
--- NOTE | 2021-05-21 14:09 | Consultation ---
History of Present Illness Consult date: 05/21/21 Requesting physician: ADITHYA GREENE Consult reason: congestive heart failure History of present illness: Patient is 52-year-old male with a past medical history of hypertension, CHF, morbid obesity, renal insufficiency, and sleep apnea who presents to the ED for shortness of breath x1 day prior to admission. Patient reports while at work he developed shortness of breath and called EMS for transportation to the hospital. Patient reports dyspnea on exertion and some chest tightness. In hospital patient was discovered to have O2 sats in high 80s on 4 L nasal cannula Hospital work-up showed for her showed patient to have bilateral PEs. Of note patient reports that he is vaccinated against Covid and was reportedly to have his booster this week. Furthermore, patient reports that in January 2021 he was diagnosed with heart failure and had extensive cardiac work-up in [facility]. Patient is previously known to our practice and reports he follows with [facility] for his cardiology. Cardiology is consulted for CHF. Past History Past Medical History: diabetes, heart failure, hypertension, other (Morbid obesity, sleep apnea) Past Surgical History: No surgical history Social history: no significant social history Medications and Allergies Allergies Allergy/AdvReac Type Severity Reaction Status Date / Time No Known Allergies Allergy Verified 05/20/21 23:05 Home Medications Medication Instructions Recorded Confirmed Last Taken Type Aspirin [[place]] 81 mg PO DAILY 05/21/21 05/21/21 1 Day Ago History ~05/20/21 Losartan [Cozaar] 100 mg PO QDAY 05/21/21 05/21/21 1 Day Ago History ~05/20/21 Metformin HCl [metFORMIN] 1,000 mg PO BID 05/21/21 05/21/21 1 Day Ago History ~05/20/21 Spironolactone [Aldactone] 25 mg PO QDAY 05/21/21 05/21/21 1 Day Ago History ~05/20/21 carvediloL [Coreg] 25 mg PO BID 05/21/21 05/21/21 1 Day Ago History ~05/20/21 glipiZIDE [Glucotrol] 5 mg PO QDAY 05/21/21 05/21/21 1 Day Ago History ~05/20/21 hydrALAZINE [Apresoline] 50 mg PO TID 01/25/22 01/25/22 1 Day Ago History ~05/20/21 Active Meds: Active Medications Acetaminophen (Acetaminophen 325 Mg Tab) 650 mg PO Q4H PRN PRN Reason: Pain MILD(1-3)/Fever >100.5/KENNEDY Last Admin: 05/21/21 10:23 Dose: 650 mg Albuterol (Albuterol 2.5 Mg/3 Ml Nebu) 2.5 mg IH Q4HRT PRN PRN Reason: Shortness Of Breath Albuterol/Ipratropium (Ipratropium/Albuterol Sulfate 3 Ml Ampul.Neb) 1 ampul IH Q6HRT [facility] Dextrose (Dextrose 50% In Water (25gm) 50 Ml Syringe) 0 ml IV Q30MIN PRN; Protocol PRN Reason: Hypoglycemia Famotidine (Famotidine 20 Mg Tab) 20 mg PO BID [facility] Last Admin: 05/21/21 10:10 Dose: 20 mg Heparin Sodium (Porcine) (Heparin 10,000 Units/10 Ml Vial) 5,000 unit IV Q6H PRN PRN Reason: Anti-Xa Assay < 0.1 units/ml Hydralazine HCl (Hydralazine 25 Mg Tab) 50 mg PO Q8HR [facility] Hydromorphone HCl (Hydromorphone 1 Mg/1 Ml Inj) 0.5 mg IV Q3H PRN PRN Reason: Pain , Severe (7-10) Heparin Sodium/Sodium Chloride (Heparin/ 0.45% Nacl-25,000 Unit/500 Ml) 25,000 unit in 500 mls @ 30 mls/hr IV TITR [facility]; Protocol Last Admin: 05/21/21 03:15 Dose: 1,500 units/hr, 30 mls/hr Insulin Human Lispro (Insulin Lispro 100 Unit/Ml) 0 unit SUB-Q ACHS [facility]; Protocol Last Admin: 05/21/21 08:17 Dose: Not Given Isosorbide Mononitrate (Isosorbide Mononitrate Er 30 Mg Tab) 30 mg PO QDAY [facility] Last Admin: 05/21/21 11:36 Dose: 30 mg Labetalol HCl (Labetalol 20 Mg/4 Ml Inj) 10 mg IV Q6H PRN PRN Reason: Blood Pressure Last Admin: 05/21/21 10:36 Dose: 10 mg Metoprolol Tartrate (Metoprolol Tartrate 50 Mg Tab) 50 mg PO BID [facility] Last Admin: 05/21/21 11:36 Dose: 50 mg Morphine Sulfate (Morphine 2 Mg/1 Ml Inj) 2 mg IV Q4H PRN PRN Reason: Pain, Moderate (4-6) Ondansetron HCl (Ondansetron 4 Mg/2 Ml Inj) 4 mg IV Q8H PRN PRN Reason: Nausea And Vomiting Sodium Chloride (Sodium Chloride 0.9% 10 Ml Flush Syringe) 10 ml IV BID [facility] Last Admin: 05/21/21 10:37 Dose: 10 ml Sodium Chloride (Sodium Chloride 0.9% 10 Ml Flush Syringe) 10 ml IV PRN PRN PRN Reason: LINE FLUSH Sodium Chloride (Sodium Chloride 0.9% 50 Ml Ivpb) 10 ml IV PRN PRN PRN Reason: FLUSH Review of Systems Constitutional: no weight loss, no weight gain, no fever Ears, nose, mouth and throat: no nasal congestion, no nasal discharge, no sinus pressure Cardiovascular: chest pain, shortness of breath, dyspnea on exertion, no orthopnea, no palpitations, no leg edema Respiratory: shortness of breath, dyspnea on exertion Gastrointestinal: no abdominal pain, no nausea, no vomiting Musculoskeletal: no neck stiffness, no neck pain, no shooting arm pain Integumentary: no rash, no pruritis, no redness Neurological: no head injury, no transient paralysis Psychiatric: no anxiety, no memory loss Endocrine: no cold intolerance, no heat intolerance Hematologic/Lymphatic: no easy bruising, no easy bleeding Physical Examination Vital Signs Temp Pulse Resp BP Pulse Ox 98.0 F 111 H 22 174/108 98 05/20/21 23:07 05/20/21 23:07 05/20/21 23:07 05/20/21 23:07 05/20/21 23:07 General appearance: no acute distress HEENT: Positive: PERRL Neck: Positive: trachea midline Cardiac: Positive: Regular Rhythm, Tachycardia Lungs: Positive: Decreased Breath Sounds Neuro: Positive: Grossly Intact Abdomen: Positive: Soft, Active Bowel Sounds Skin: Negative: Rash, Suspicious Lesions, Ulceration Extremities: Present: upper extr. pulses. Absent: edema Results 05/20/21 23:41 05/20/21 23:41 Cardiac Enzymes 05/20/21 Range/Units 23:41 AST 25 (5-40) units/L CK-MB (CK-2) 2.3 (0.0-4.0) ng/mL Coagulation 05/20/21 Range/Units 23:41 PT 15.2 H (12.2-14.9) Sec. INR 1.08 (0.87-1.13) APTT 33.5 (24.2-36.6) Sec. CBC 05/20/21 Range/Units 23:41 WBC 7.0 (4.5-11.0) K/mm3 RBC 4.55 (3.65-5.03) M/mm3 Hgb 12.4 (11.8-15.2) gm/dl Hct 39.6 (35.5-45.6) % Plt Count 223 (140-440) K/mm3 Lymph # (Auto) 2.0 (1.2-5.4) K/mm3 [place] # (Auto) 0.6 (0.0-0.8) K/mm3 Eos # (Auto) 0.2 (0.0-0.4) K/mm3 Baso # (Auto) 0.0 (0.0-0.1) K/mm3 Comprehensive Metabolic Panel 05/20/21 Range/Units 23:41 Sodium 141 (137-145) mmol/L Potassium 4.4 (3.6-5.0) mmol/L Chloride 108.1 H (98-107) mmol/L Carbon Dioxide 19 L (22-30) mmol/L BUN 20 (9-20) mg/dL Creatinine 1.6 H (0.8-1.3) mg/dL Glucose 118 H (75-100) mg/dL Calcium 9.5 (8.4-10.2) mg/dL AST 25 (5-40) units/L ALT 17 (7-56) units/L Alkaline Phosphatase 97 (35-129) units/L Total Protein 8.1 (6.3-8.2) g/dL Albumin 4.3 (3.9-5) g/dL - Imaging and Cardiology Echo: pending EKG interpretations - Telemetry EKG Rhythm: Sinus Tachycardia - EKG Sinus rhythms and dysrhythmias: sinus tachycardia Repolarization changes or abnormalities: nonspecific abnormality, ST segment, and/or T wave Assessment and Plan Patient is 52-year-old male with a past medical history of hypertension, CHF, morbid obesity, renal insufficiency, and sleep apnea who presents to the ED for shortness of breath x1 day prior to admission. Acute hypoxic respiratory failure-patient on NC Bilateral pulmonary embolisms-vascular following Hypertensive urgency CKD History of CHF Morbid obesity Plan: EKG shows sinus tach 120s nonspecific ST-T abnormalities. No acute ischemic changes. Troponins negative x3 Patient currently chest pain-free AMI ruled out Patient currently anticoagulated on heparin drip Initiated metoprolol 50 mg p.o. twice daily Imdur 30 mg p.o. daily hydralazine 50 mg p.o. every 8 hours Patient appears euvolemic on exam, patient denies orthopnea, no bilateral lower extremity edema noted Stop Lasix and CRISS/ARB due to elevated creatinine Echo pending Requested records from [facility] regarding patient's recent cardiac work-up Patient seen in conjunction with Dr. Penn who agrees with this plan of care - Patient Problems (1) Acute respiratory failure Current Visit: Yes Status: Acute (2) Bilateral pulmonary embolism Current Visit: Yes Status: Acute (3) CRI (chronic renal insufficiency) Current Visit: Yes Status: Acute (4) History of CHF (congestive heart failure) Current Visit: Yes Status: Acute (5) Morbid obesity Current Visit: Yes Status: Acute (6) Sleep apnea Current Visit: Yes Status: Acute (7) Uncontrolled hypertension Current Visit: Yes Status: Acute
--- NOTE | 2021-05-21 16:20 | Consultation ---
History of Present Illness - Reason for Consult Consult date: 05/21/21 Bilateral Pulmonary Emboli Requesting physician: HALEIGH HOLLOWAY - History of Present Illness The patient is a 60-year-old male with a history of hypertension, recently diagnosed diabetes mellitus, and congestive heart failure who presented to the emergency department with complaints of shortness of breath x1 day. He states that he had been at work and was having increased dyspnea on exertion especially with walking stairs. He denies any severe chest pain or new coughs. He denies any leg swelling, prolonged bedrest, or long trips. Upon presentation to the emergency department he had a CTA of his chest that demonstrated bilateral pulmonary emboli involving the distal main pulmonary arteries and segmental branches. His initial oxygen saturations were in the 80s however improved to the 90s with 4 L of nasal cannula. He denies any previous history of DVTs however he does state that his daughter had a DVT with pulmonary emboli in October. He denies any recent history of COVID-19 infection and states that he has been vaccinated. He feels overall fatigued at this time however he has no additional complaints. Past History Past Medical History: diabetes, heart failure, hypertension, other (Morbid obesity, sleep apnea) Past Surgical History: Other (Arthroscopy of knee) Social history: no significant social history Family history: other (Daughter with history of DVT and PE) Medications and Allergies Allergies Allergy/AdvReac Type Severity Reaction Status Date / Time No Known Allergies Allergy Verified 05/20/21 23:05 Home Medications Medication Instructions Recorded Confirmed Last Taken Type Aspirin [Vaz[place]] 81 mg PO DAILY 05/21/21 05/21/21 1 Day Ago History ~05/20/21 Losartan [Cozaar] 100 mg PO QDAY 05/21/21 05/21/21 1 Day Ago History ~05/20/21 Metformin HCl [metFORMIN] 1,000 mg PO BID 05/21/21 05/21/21 1 Day Ago History ~05/20/21 Spironolactone [Aldactone] 25 mg PO QDAY 05/21/21 05/21/21 1 Day Ago History ~05/20/21 carvediloL [Coreg] 25 mg PO BID 05/21/21 05/21/21 1 Day Ago History ~05/20/21 glipiZIDE [Glucotrol] 5 mg PO QDAY 05/21/21 05/21/21 1 Day Ago History ~05/20/21 hydrALAZINE [Apresoline] 50 mg PO TID 05/21/21 05/21/21 1 Day Ago History ~05/20/21 Active Meds: Active Medications Acetaminophen (Acetaminophen 325 Mg Tab) 650 mg PO Q4H PRN PRN Reason: Pain MILD(1-3)/Fever >100.5/KENNEDY Last Admin: 05/21/21 10:23 Dose: 650 mg Albuterol (Albuterol 2.5 Mg/3 Ml Nebu) 2.5 mg IH Q4HRT PRN PRN Reason: Shortness Of Breath Albuterol/Ipratropium (Ipratropium/Albuterol Sulfate 3 Ml Ampul.Neb) 1 ampul IH Q6HRT [facility] Dextrose (Dextrose 50% In Water (25gm) 50 Ml Syringe) 0 ml IV Q30MIN PRN; Protocol PRN Reason: Hypoglycemia Famotidine (Famotidine 20 Mg Tab) 20 mg PO BID [facility] Last Admin: 05/21/21 10:10 Dose: 20 mg Heparin Sodium (Porcine) (Heparin 10,000 Units/10 Ml Vial) 5,000 unit IV Q6H PRN PRN Reason: Anti-Xa Assay < 0.1 units/ml Hydralazine HCl (Hydralazine 25 Mg Tab) 50 mg PO Q8HR YENNI Hydromorphone HCl (Hydromorphone 1 Mg/1 Ml Inj) 0.5 mg IV Q3H PRN PRN Reason: Pain , Severe (7-10) Heparin Sodium/Sodium Chloride (Heparin/ 0.45% Nacl-25,000 Unit/500 Ml) 25,000 unit in 500 mls @ 30 mls/hr IV TITR [facility]; Protocol Last Titration: 05/21/21 14:47 Dose: 1,600 units/hr, 32 mls/hr Insulin Human Lispro (Insulin Lispro 100 Unit/Ml) 0 unit SUB-Q ACHS [facility]; Protocol Last Admin: 05/21/21 08:17 Dose: Not Given Isosorbide Mononitrate (Isosorbide Mononitrate Er 30 Mg Tab) 30 mg PO QDAY [facility] Last Admin: 05/21/21 11:36 Dose: 30 mg Labetalol HCl (Labetalol 20 Mg/4 Ml Inj) 10 mg IV Q6H PRN PRN Reason: Blood Pressure Last Admin: 05/21/21 10:36 Dose: 10 mg Metoprolol Tartrate (Metoprolol Tartrate 50 Mg Tab) 50 mg PO BID [facility] Last Admin: 05/21/21 11:36 Dose: 50 mg Morphine Sulfate (Morphine 2 Mg/1 Ml Inj) 2 mg IV Q4H PRN PRN Reason: Pain, Moderate (4-6) Ondansetron HCl (Ondansetron 4 Mg/2 Ml Inj) 4 mg IV Q8H PRN PRN Reason: Nausea And Vomiting Sodium Chloride (Sodium Chloride 0.9% 10 Ml Flush Syringe) 10 ml IV BID [facility] Last Admin: 05/21/21 10:37 Dose: 10 ml Sodium Chloride (Sodium Chloride 0.9% 10 Ml Flush Syringe) 10 ml IV PRN PRN PRN Reason: LINE FLUSH Sodium Chloride (Sodium Chloride 0.9% 50 Ml Ivpb) 10 ml IV PRN PRN PRN Reason: FLUSH Review of Systems All systems: negative Exam - Constitutional Vitals: Temp Pulse Resp BP Pulse Ox 97.9 F 94 H 28 H 136/70 94 05/21/21 12:00 05/21/21 15:00 05/21/21 15:00 05/21/21 15:00 05/21/21 15:00 General appearance: Present: no acute distress - Neck Neck: Present: supple - Respiratory Respiratory effort: labored (Slightly labored with speech) - Cardiovascular Heart rate: 115 Rhythm: regular - Extremities Extremities: no ischemia, pulses intact, No edema - Abdominal General gastrointestinal: Present: soft, non-tender, non-distended Male genitourinary: Present: deferred - Rectal Rectal Exam: deferred - Psychiatric Psychiatric: appropriate mood/affect Results - Labs CBC & Chem 7: 05/22/21 06:32 05/22/21 06:32 Labs: Abnormal lab results 05/20/21 05/20/21 05/20/21 Range/Units 23:41 23:41 23:41 MCH 27 L (28-32) pg RDW 15.4 H (13.2-15.2) % [place] % (Auto) 9.1 H (0.0-7.3) % PT 15.2 H (12.2-14.9) Sec. Heparin Anti-Xa Level (0.3-0.7) U.I./ml Chloride 108.1 H (98-107) mmol/L Carbon Dioxide 19 L (22-30) mmol/L Creatinine 1.6 H (0.8-1.3) mg/dL Glucose 118 H (75-100) mg/dL POC Glucose (70-105) mg/dL Total Creatine Kinase 230 H (55-170) units/L 05/21/21 05/21/21 Range/Units 12:30 Unknown MCH (28-32) pg RDW (13.2-15.2) % [place] % (Auto) (0.0-7.3) % PT (12.2-14.9) Sec. Heparin Anti-Xa Level 0.17 L (0.3-0.7) U.I./ml Chloride (98-107) mmol/L Carbon Dioxide (22-30) mmol/L Creatinine (0.8-1.3) mg/dL Glucose (75-100) mg/dL POC Glucose 107 H (70-105) mg/dL Total Creatine Kinase (55-170) units/L - Imaging and Cardiology CT scan - chest: image reviewed Assessment and Plan The patient is a 60-year-old male with a history of congestive heart failure who presented to the emergency department with complaints of shortness of breath and was found to have bilateral pulmonary emboli involving the distal main pulmonary arteries. He initially presented with decreased oxygen saturations that improved with 4 L of nasal cannula. He continues to have some complaints of shortness of breath with laying in bed. His troponin and BNP are within normal limits however he does remain tachycardic even lying in bed. His echocardiogram is pending. If this does show evidence of right heart strain this along with the tachycardia and overall symptoms will be an indication for thrombolysis. I discussed this with the patient who is expressed understanding of the plan and agrees. Given the history of DVT and PE with his daughter he would also benefit from a hypercoagulable work-up. We will follow up on echocardiogram findings for possible thrombolysis.
[2021-05-21] MEDS: hydrALAZINE 25 MG TAB PO SCH ×2 (18:33→21:01)
[2021-05-22] MEDS: hydrALAZINE 25 MG TAB PO SCH ×3 (06:37→22:02)
[2021-05-22 06:52] LABS: Basophils % (Auto) 0.7 % (0.0-1.8); Eosinophils # (Auto) 0.2 K/mm3 (0.0-0.4); Eosinophils % (Auto) 3.8 % (0.0-4.3); Lymphocytes # (Auto) 2.1 K/mm3 (1.2-5.4); Mean Corpuscular HGB Conc 31 % (32-34); Mean Corpuscular Volume 88 fl (84-94); Monocytes # (Auto) 0.7 K/mm3 (0.0-0.8); Monocytes % (Auto) 10.6 % (0.0-7.3); Platelet Count 221 K/mm3 (140-440); Red Blood Count 4.62 M/mm3 (3.65-5.03); Red Cell Distribution Width 15.3 % (13.2-15.2)
[2021-05-22] MEDS ORDERED: DEXTROSE 10% *Hypoglycemia IV PRN (06:55)
[2021-05-22 07:04] LABS: Hematocrit 40.4 % (35.5-45.6); Hemoglobin 12.5 gm/dl (11.8-15.2)
[2021-05-22 07:47] LABS: Calcium 9.2 mg/dL (8.4-10.2)
--- NOTE | 2021-05-22 09:22 | Progress Note ---
Assessment and Plan Assessment and plan: History of present illness: 60-year-old male with a past medical history morbid obesity, CHF, hypertension, recently diagnosed renal insufficiency, and sleep apnea (CPAP at night) presents to the hospital complaining of shortness of breath x1 day. Patient experiencing dyspnea worse on exertion. Patient called EMS from work. EMS reports room air saturation in low 90s. Patient placed on supplemental oxygen with improvement in oxygen saturation, shortness of breath, and chest tightness. Patient has been compliant with his medications. He states he was last admitted to in January 2021 to [facility] and underwent cardiac work-up including stress testing. He was diagnosed with CHF and denies diagnosis of ischemia. His physicians are affiliated with [facility]. He is vaccinated for Covid and has scheduled a booster this week. He denies fever. Admitted to [facility] Hospital Course: 05/21: Continue heparin gtt, pending ECHO. CT angiogram appears to demonstrate some right heart strain on my read but will await ECHO. Patient hemodynamically stable and in no distress. Pending cardiology and vascular evaluation. 05/22: RV strain noted on ECHO. Plan for EKOS by vascular surgery today. Assessment and Plan: (1) Acute respiratory failure with hypoxia Current Visit: Yes Status: Acute Plan to address problem: Oxygen via nasal cannula, wean as sats tolerate. CT angiogram confirms bilateral central pulmonary emboli. DuoNeb by nebulizer every 4 hours. Albuterol via nebulizer every 4 hours as needed. Lasix 40 mg IV daily. Echocardiogram. Heparin drip. Vascular surgery evaluation Cardiology consultation (2) Bilateral pulmonary embolism Current Visit: Yes Status: Acute Plan to address problem: Oxygen via nasal cannula 3 to 5 L/min. CT angiogram confirms bilateral central pulmonary emboli. DuoNeb by nebulizer every 4 hours. Albuterol via nebulizer every 4 hours as needed. Echocardiogram. Heparin drip. Vascular surgery evaluation Cardiology consultation (3) Chronic Kidney Disease Current Visit: Yes Status: Acute Plan to address problem: Avoid nephrotoxic drugs. Renally dose medication. Recheck BMP in the morning if needed will consult nephrology (4) History of CHF (congestive heart failure) Current Visit: Yes Status: Acute Plan to address problem: Fluid restriction. Daily weight. Maintain input output. Echocardiogram. Lasix 40 mg IV daily. Cardiology evaluation (5) Morbid obesity Current Visit: Yes Status: Acute Plan to address problem: Patient counseled regarding weight reduction. Outpatient follow-up with bariatric surgery (6) Sleep apnea Current Visit: Yes Status: Acute Plan to address problem: Oxygen via nasal cannula 3 to 5 L/min. DuoNeb by nebulizer every 4 hours. Albuterol via nebulizer every 4 hours as needed. (7) Uncontrolled hypertension Current Visit: Yes Status: Acute Plan to address problem: IV labetalol for hypertension. Lisinopril 5 mg p.o. daily. Continue home medication (8) DVT prophylaxis Current Visit: Yes Status: Acute Plan to address problem: Patient is on heparin drip per DVT prophylaxis. Pepcid 20 mg p.o. twice daily for GI prophylaxis. Patient is a full code #Advance care planning Disease education conducted, care plan discussed, diagnoses discussed, prognosis discussed, patient is full code, patient acknowledges understanding and agree with care plan, +30 minutes. Dispo: IMCU The high probability of a clinically significant, sudden or life threatening deterioration of the [cardiac, pulmonary] system(s) required my full and direct attention, intervention and personal management. The aggregate critical care time was [60] minutes. This time is in addition to time spent performing reported procedures but includes the following: [x] Data Review and interpretation [x] Patient assessment and monitoring of vital signs [x] Documentation [x] Medication orders and management History Interval history: No acute complaints. Hospitalist Physical - Physical exam Narrative exam: General appearance: Present: no acute distress, well-nourished, morbid obesity, currently on nasal cannula. - EENT Eyes: Present: PERRL ENT: hearing intact, clear oral mucosa - Neck Neck: Present: supple, normal ROM - Respiratory Respiratory effort: normal Respiratory: bilateral: rales - Cardiovascular Heart Sounds: Present: S1 & S2. Absent: rub, click - Extremities Extremities: pulses symmetrical Extremity abnormal: edema Peripheral Pulses: within normal limits - Abdominal General gastrointestinal: Present: soft, non-tender, non-distended, normal bowel sounds Male genitourinary: Present: normal - Integumentary Integumentary: Present: clear, warm, dry - Musculoskeletal Musculoskeletal: gait normal, strength equal bilaterally - Psychiatric Psychiatric: appropriate mood/affect, intact judgment & insight - Neurologic Neurologic: CNII-XII intact, moves all extremities - Constitutional Vitals: Temp Pulse Resp BP Pulse Ox 97.3 F L 95 H 27 H 162/99 94 01/26/22 04:00 05/22/21 08:30 05/22/21 08:30 05/22/21 08:30 05/22/21 08:30 General appearance: Present: no acute distress HEART Score - HEART Score Troponin: Troponin T 0.028 ng/mL (0.00-0.029) 05/21/21 05:09 Results - Labs CBC & Chem 7: 05/22/21 14:40 05/22/21 11:42 Labs: Laboratory Last Values WBC 6.3 K/mm3 (4.5-11.0) 05/22/21 06:32 RBC 4.62 M/mm3 (3.65-5.03) 05/22/21 06:32 Hgb 12.5 gm/dl (11.8-15.2) 05/22/21 06:32 Hct 40.4 % (35.5-45.6) 05/22/21 06:32 MCV 88 fl (84-94) 05/22/21 06:32 MCH 27 pg (28-32) L 05/22/21 06:32 MCHC 31 % (32-34) L 05/22/21 06:32 RDW 15.3 % (13.2-15.2) H 05/22/21 06:32 Plt Count 221 K/mm3 (140-440) 05/22/21 06:32 Lymph % (Auto) 33.0 % (13.4-35.0) 05/22/21 06:32 [place] % (Auto) 10.6 % (0.0-7.3) H 05/22/21 06:32 Eos % (Auto) 3.8 % (0.0-4.3) 05/22/21 06:32 Baso % (Auto) 0.7 % (0.0-1.8) 05/22/21 06:32 Lymph # (Auto) 2.1 K/mm3 (1.2-5.4) 05/22/21 06:32 [place] # (Auto) 0.7 K/mm3 (0.0-0.8) 05/22/21 06:32 Eos # (Auto) 0.2 K/mm3 (0.0-0.4) 05/22/21 06:32 Baso # (Auto) 0.0 K/mm3 (0.0-0.1) 05/22/21 06:32 Seg Neutrophils % 51.9 % (40.0-70.0) 05/22/21 06:32 Seg Neutrophils # 3.3 K/mm3 (1.8-7.7) 05/22/21 06:32 PT 15.2 Sec. (12.2-14.9) H 05/20/21 23:41 INR 1.08 (0.87-1.13) 05/20/21 23:41 APTT 33.5 Sec. (24.2-36.6) 05/20/21 23:41 Heparin Anti-Xa Level 0.55 U.I./ml (0.3-0.7) 05/22/21 06:32 Sodium 140 mmol/L (137-145) 05/22/21 06:32 Potassium 4.6 mmol/L (3.6-5.0) 05/22/21 06:32 Chloride 107.5 mmol/L (98-107) H 05/22/21 06:32 Carbon Dioxide 22 mmol/L (22-30) 05/22/21 06:32 Anion Gap 15 mmol/L 05/22/21 06:32 BUN 16 mg/dL (9-20) 05/22/21 06:32 Creatinine 1.5 mg/dL (0.8-1.3) H 05/22/21 06:32 Estimated GFR 48 ml/min 05/22/21 06:32 BUN/Creatinine Ratio 11 % 05/22/21 06:32 Glucose 109 mg/dL (75-100) H 05/22/21 06:32 POC Glucose 108 mg/dL (70-105) H 05/22/21 07:24 Calcium 9.2 mg/dL (8.4-10.2) 05/22/21 06:32 Total Bilirubin 0.50 mg/dL (0.1-1.2) 05/20/21 23:41 AST 25 units/L (5-40) 05/20/21 23:41 ALT 17 units/L (7-56) 05/20/21 23:41 Alkaline Phosphatase 97 units/L (35-129) 05/20/21 23:41 Total Creatine Kinase 230 units/L (55-170) H 05/20/21 23:41 CK-MB (CK-2) 2.3 ng/mL (0.0-4.0) 05/20/21 23:41 CK-MB (CK-2) Rel Index 1.0 (0-4) 05/20/21 23:41 Troponin T 0.028 ng/mL (0.00-0.029) 05/21/21 05:09 NT-Pro-B Natriuret Pep 462.9 pg/mL (0-900) 05/20/21 23:41 Total Protein 8.1 g/dL (6.3-8.2) 05/20/21 23:41 Albumin 4.3 g/dL (3.9-5) 05/20/21 23:41 Albumin/Globulin Ratio 1.1 % 05/20/21 23:41 Coronavirus (PCR) Negative (Negative) 05/21/21 08:30 Active Medications - Current Medications Current Medications: Generic Name Dose Route Start Last Admin Trade Name Freq PRN Reason Stop Dose Admin Acetaminophen 650 mg 05/21/21 04:29 05/21/21 10:23 Acetaminophen 325 Mg Tab PO 650 mg Q4H PRN Administration Pain MILD(1-3)/Fever >100.5/KENNEDY Albuterol 2.5 mg 05/21/21 04:29 Albuterol 2.5 Mg/3 Ml Nebu IH Q4HRT PRN Shortness Of Breath Albuterol/Ipratropium 1 ampul 05/21/21 08:00 Ipratropium/Albuterol Sulfate 3 Ml Ampul.Neb IH Q6HRT YENNI Dextrose 0 ml 05/22/21 06:55 Dextrose 10% *Hypoglycemia IV PRN PRN Hypoglycemia Famotidine 20 mg 05/21/21 10:00 05/21/21 21:02 Famotidine 20 Mg Tab PO 20 mg BID YENNI Administration Heparin Sodium (Porcine) 5,000 unit 05/21/21 08:43 05/22/21 00:06 Heparin 10,000 Units/10 Ml Vial IV 5,000 unit Q6H PRN Administration Anti-Xa Assay < 0.1 units/ml Hydralazine HCl 50 mg 05/21/21 14:00 05/22/21 06:37 Hydralazine 25 Mg Tab PO 50 mg Q8HR YENNI Administration Hydromorphone HCl 0.5 mg 05/21/21 04:29 Hydromorphone 1 Mg/1 Ml Inj IV Q3H PRN Pain , Severe (7-10) Heparin Sodium/Sodium Chloride 25,000 unit in 500 mls @ 30 mls/hr 05/21/21 03:00 05/22/21 07:40 Heparin/ 0.45% Nacl-25,000 Unit/500 Ml IV 1,950 units/hr TITR YENNI 39 mls/hr Titration Protocol 1,500 UNITS/HR Insulin Human Lispro 0 unit 05/21/21 07:30 05/21/21 21:09 Insulin Lispro 100 Unit/Ml SUB-Q Not Given ACHS YENNI Protocol Isosorbide Mononitrate 30 mg 05/21/21 11:00 05/21/21 11:36 Isosorbide Mononitrate Er 30 Mg Tab PO 30 mg QDAY YENNI Administration Labetalol HCl 10 mg 05/21/21 04:42 05/21/21 10:36 Labetalol 20 Mg/4 Ml Inj IV 10 mg Q6H PRN Administration Blood Pressure Metoprolol Tartrate 50 mg 05/21/21 11:00 05/21/21 21:02 Metoprolol Tartrate 50 Mg Tab PO 50 mg BID YENNI Administration Morphine Sulfate 2 mg 05/21/21 04:29 Morphine 2 Mg/1 Ml Inj IV Q4H PRN Pain, Moderate (4-6) Ondansetron HCl 4 mg 05/21/21 04:29 Ondansetron 4 Mg/2 Ml Inj IV Q8H PRN Nausea And Vomiting Sodium Chloride 10 ml 05/21/21 10:00 05/21/21 22:27 Sodium Chloride 0.9% 10 Ml Flush Syringe IV 10 ml BID YENNI Administration Sodium Chloride 10 ml 05/21/21 04:29 Sodium Chloride 0.9% 10 Ml Flush Syringe IV PRN PRN LINE FLUSH Sodium Chloride 10 ml 05/21/21 09:02 Sodium Chloride 0.9% 50 Ml Ivpb IV PRN PRN FLUSH Nutrition/Malnutrition Assess - Dietary Evaluation Nutrition/Malnutrition Findings: Nutrition Notes Start: 05/21/21 11:45 Freq: Status: Active Protocol: Document 05/21/21 11:45 ABIGAIL (Rec: 05/21/21 11:51 ABIGAIL [id number]) Nutrition Notes Need for Assessment generated from: MD Order,Education Initial or Follow up Brief Note Current Diagnosis CKD(stage I-IV),Hypertension, Respiratory Failure Other Pertinent Diagnosis Bilateral pulmonary embolism, CHF. Current Diet Cardiac/Consistent Carbohydrates Diet (since B ). Height 5 ft 11 in Weight 179.623 kg [place] Body Weight (kg) 78.18 BMI 55.2 Weight change and time frame None reported at admission. Weight Status Morbidly Obese Subjective/Other Information RD consult for nutrition education and skin risk assessment. Pt shows no signs of concern for skin risk at the time, according to Physical Assessment History notes. Pt still on ED, not a candidate for Nutrition Education at the time, will assess feasibility on F/U. No reports available on Pt's PO intake of meals at the time . Percent of energy/protein needs met: Prescribed Cardiac/Consistent Carbohydrates Diet provides for energy/protein needs (1, 977 Kcal/86 g) during LOS. Food Allergy No Skin Integrity/Comment Clear, warm, dry. Nutrition Intervention Follow-Up By: 05/28/21 Additional Comments Nutrition education will be provided on F/U if feasible. Continue monitoring food tolerance, %PO intake of meals , and BM.
[2021-05-22] MEDS: METOPROLOL TARTRATE 50 MG TAB PO SCH ×3 (09:30→22:01)
[2021-05-22] MEDS: FAMOTIDINE 20 MG TAB PO SCH ×2 (09:31→22:02)
[2021-05-22] MEDS: MORPHINE 2 MG/1 ML INJ IV PRN ×2 (09:31→17:01)
[2021-05-22] MEDS: HEPARIN/ 0.45% NACL DRIP 25,000 UNIT/500 ML BAG IV SCH (09:36)
[2021-05-22] MEDS: INSULIN LISPRO 100 UNIT/ML SUB-Q SCH ×4 (09:37→22:39)
[2021-05-22] MEDS ORDERED: ALTEPLASE 10 MG in SODIUM CHLORIDE 0.9% 250ML 250 ML IV STA (11:59)
[2021-05-22] MEDS ORDERED: ALTEPLASE 10 MG in SODIUM CHLORIDE 0.9% 250ML 250 ML EKOSDLUMEN STA (11:59)
[2021-05-22] MEDS ORDERED: HEPARIN/ 0.45% NACL DRIP 25,000 UNIT/500 ML BAG SHEATH SCH ×2 (12:00)
[2021-05-22] MEDS ORDERED: SODIUM CHLORIDE 0.9% 1000 ML 1,000 ML EKOSCLUMEN SCH ×2 (12:15)
[2021-05-22] MEDS ORDERED: SODIUM CHLORIDE 0.9% 1000 ML 1,000 ML IV SCH (12:15)
[2021-05-22] MEDS ORDERED: SODIUM CHLORIDE 0.9% 1000 ML 1,000 ML SHEATH SCH ×2 (12:15)
[2021-05-22] MEDS ORDERED: HEPARIN 10,000 UNITS/10 ML VIAL ONE (12:21)
[2021-05-22] MEDS ORDERED: SODIUM CHLORIDE 0.9% 1000 ML 2,000 ML ONE (12:21)
[2021-05-22] MEDS ORDERED: ALTEPLASE 2 MG INJ ONE ×2 (12:22→14:26)
[2021-05-22] MEDS ORDERED: fentaNYL 100 MCG/2 ML INJ ONE (12:22)
[2021-05-22] MEDS ORDERED: MIDAZOLAM 2 MG/2 ML INJ ONE (12:22)
[2021-05-22] MEDS ORDERED: WATER FOR INJ Sterile (PF) 10 ML ONE ×2 (12:24→12:26)
[2021-05-22] MEDS ORDERED: LIDOCAINE (2%) 20 MG/1 ML VIAL 20 ML MDV INFILTRATI ONE (12:26)
[2021-05-22] MEDS ORDERED: HEPARIN/NS 5000 UNIT/500ML 1,000 ML IR ONE (12:26)
[2021-05-22] MEDS ORDERED: HEPARIN/ 0.45% NACL DRIP 25,000 UNIT/500 ML BAG ONE ×2 (12:29→12:34)
[2021-05-22] MEDS ORDERED: ceFAZolin/Water 2 GM/20 ML 2 GM/20 ML SYRINGE IV ONE (12:36)
[2021-05-22] MEDS ORDERED: SODIUM CHLORIDE 0.9% 500 ML 500 ML ONE (13:21)
--- NOTE | 2021-05-22 13:48 | Progress Note ---
Assessment and Plan Patient is 52-year-old male with a past medical history of hypertension, CHF, morbid obesity, renal insufficiency, and sleep apnea who presents to the ED for shortness of breath x1 day prior to admission. Acute hypoxic respiratory failure-patient on NC Bilateral pulmonary embolisms-vascular following Hypertensive urgency CKD History of CHF Morbid obesity Echo 05/21/2021-left ventricular systolic function is borderline EF 45 to 50%. Mild LVH. Right ventricle is mildly hypokinetic and mildly dilated. Right ventricular systolic function could not be assessed. Atrial septum is bowed toward the left consistent with elevated right atrial pressure. Mild pulmonic regurgitation Plan: Echo results noted above. Echo results show right heart strain. Vascular vascular plans for intervention regarding PEs today today Patient currently anticoagulated on heparin drip Patient still remains hypertensive will increase to metoprolol 1000 mg p.o. twice daily hydralazine 75 mg p.o. every 8 hours Continue Imdur 30 mg p.o. daily Requested records from [facility] regarding patient's recent cardiac work-up Patient seen in conjunction with Dr. Penn who agrees with this plan of care - Patient Problems (1) Acute respiratory failure Current Visit: Yes Status: Acute (2) Bilateral pulmonary embolism Current Visit: Yes Status: Acute (3) CRI (chronic renal insufficiency) Current Visit: Yes Status: Acute (4) History of CHF (congestive heart failure) Current Visit: Yes Status: Acute (5) Morbid obesity Current Visit: Yes Status: Acute (6) Sleep apnea Current Visit: Yes Status: Acute (7) Uncontrolled hypertension Current Visit: Yes Status: Acute Subjective Date of service: 05/22/21 Principal diagnosis: Bilateral PEs Interval history: Patient to be taken to surgery for bilateral PEs. Patient in no acute distress Objective Vital Signs Temp Pulse Pulse Resp BP Pulse Ox 05/22/21 12:40 94 H 19 161/105 97 05/22/21 12:30 107 H 31 H 161/105 96 05/22/21 12:20 86 22 161/105 99 05/22/21 12:10 82 19 161/105 98 05/22/21 12:00 88 84 17 161/105 99 05/22/21 11:50 86 16 148/100 98 05/22/21 11:40 83 14 148/100 99 05/22/21 11:30 21 148/100 98 05/22/21 11:20 87 17 148/100 100 05/22/21 11:10 87 14 148/100 99 05/22/21 11:00 90 27 H 148/100 97 05/22/21 10:50 81 21 161/104 100 05/22/21 10:40 95 H 27 H 161/104 96 05/22/21 10:30 102 H 18 161/104 98 05/22/21 10:20 92 H 20 161/104 97 05/22/21 10:10 96 H 20 161/104 100 05/22/21 10:00 92 H 12 161/104 99 05/22/21 09:50 91 H 19 155/121 95 05/22/21 09:40 92 H 14 155/121 96 05/22/21 09:30 94 H 10 L 155/121 96 05/22/21 09:20 106 H 19 155/121 97 05/22/21 09:10 85 15 155/121 99 05/22/21 09:00 96 H 30 H 155/121 96 05/22/21 08:50 94 H 21 162/99 99 05/22/21 08:40 86 33 H 162/99 93 05/22/21 08:30 95 H 27 H 162/99 94 05/22/21 08:20 95 H 26 H 162/99 97 05/22/21 08:10 95 H 31 H 162/99 95 05/22/21 08:00 92 H 84 22 162/99 95 05/22/21 07:50 98 H 31 H 163/116 94 05/22/21 07:40 99 H 23 163/116 96 05/22/21 07:30 99 H 20 163/116 91 05/22/21 07:20 88 31 H 163/116 98 05/22/21 07:10 95 H 29 H 163/116 96 05/22/21 07:00 94 H 29 H 163/116 96 05/22/21 06:50 111 H 37 H 138/108 89 05/22/21 06:40 88 22 138/108 96 05/22/21 06:37 88 138/108 05/22/21 06:30 91 H 21 138/108 96 05/22/21 06:20 90 17 138/108 95 05/22/21 06:10 21 138/108 93 05/22/21 06:00 92 H 13 138/108 94 05/22/21 05:50 94 H 12 139/98 91 05/22/21 05:40 83 19 139/98 96 05/22/21 05:30 94 H 25 H 139/98 95 05/22/21 05:20 88 19 139/98 97 05/22/21 05:10 94 H 14 139/98 97 05/22/21 05:00 83 18 139/98 98 05/22/21 04:50 92 H 20 153/109 96 05/22/21 04:40 74 20 153/109 97 05/22/21 04:30 76 17 153/109 98 05/22/21 04:20 87 20 153/109 91 05/22/21 04:10 82 15 153/109 93 05/22/21 04:00 97.3 F L 84 28 H 153/109 95 05/22/21 03:50 18 138/86 95 05/22/21 03:40 83 24 138/86 88 05/22/21 03:30 68 15 138/86 98 05/22/21 03:20 89 28 H 138/86 95 05/22/21 03:10 24 138/86 98 05/22/21 03:00 89 21 138/86 99 05/22/21 02:50 88 25 H 135/88 97 05/22/21 02:40 90 22 135/88 93 05/22/21 02:30 89 16 135/88 90 05/22/21 02:20 82 16 135/88 98 05/22/21 02:10 89 15 135/88 95 05/22/21 02:00 89 32 H 135/88 95 05/22/21 01:50 85 25 H 151/102 94 05/22/21 01:40 81 26 H 151/102 97 05/22/21 01:30 81 25 H 151/102 95 05/22/21 01:20 89 33 H 151/102 93 05/22/21 01:10 85 27 H 151/102 88 05/22/21 01:00 92 H 23 151/102 95 05/22/21 00:50 85 18 155/104 98 05/22/21 00:40 88 28 H 155/104 95 05/22/21 00:30 89 155/104 95 05/22/21 00:20 155/104 94 05/22/21 00:10 97 H 155/104 95 05/22/21 00:00 97.5 F L 104 H 88 18 115/71 87 05/21/21 23:50 103 H 32 H 115/71 96 05/21/21 23:40 87 19 115/71 97 05/21/21 23:30 89 28 H 115/71 98 05/21/21 23:20 86 18 126/93 97 05/21/21 23:10 88 24 115/71 98 05/21/21 23:00 92 H 20 126/93 98 05/21/21 22:51 92 H 22 126/93 97 05/21/21 22:50 92 H 19 126/93 99 05/21/21 22:41 94 H 26 H 126/93 98 05/21/21 22:40 90 23 126/93 98 05/21/21 22:31 95 H 31 H 126/93 98 05/21/21 22:30 96 H 29 H 126/93 98 05/21/21 22:21 94 H 19 126/93 97 05/21/21 22:20 94 H 30 H 126/93 98 05/21/21 22:11 92 H 25 H 126/93 97 05/21/21 22:10 93 H 27 H 126/93 98 05/21/21 22:00 91 H 15 141/107 96 05/21/21 21:51 93 H 31 H 141/107 96 05/21/21 21:50 95 H 31 H 141/107 96 05/21/21 21:41 96 H 27 H 141/107 97 05/21/21 21:40 96 H 18 141/107 96 05/21/21 21:31 94 H 26 H 141/107 99 05/21/21 21:30 93 H 24 141/107 97 05/21/21 21:21 94 H 26 H 141/107 98 05/21/21 21:20 100 H 19 141/107 97 05/21/21 21:11 92 H 27 H 141/107 95 05/21/21 21:10 94 H 26 H 141/107 97 05/21/21 21:02 94 H 141/107 05/21/21 21:01 94 H 141/107 05/21/21 21:00 92 H 15 136/92 97 05/21/21 20:51 92 H 31 H 139/101 96 05/21/21 20:50 86 28 H 139/101 96 05/21/21 20:41 92 H 32 H 139/101 98 05/21/21 20:40 87 25 H 139/101 94 05/21/21 20:31 89 13 139/101 93 05/21/21 20:30 86 13 139/101 94 05/21/21 20:21 86 17 139/101 96 05/21/21 20:20 85 23 139/101 94 05/21/21 20:11 93 H 11 L 139/101 95 05/21/21 20:10 90 14 139/101 96 05/21/21 20:00 97.8 F 91 H 88 20 117/90 93 05/21/21 19:51 90 24 117/90 95 05/21/21 19:50 91 H 31 H 117/90 97 05/21/21 19:41 91 H 33 H 117/90 97 05/21/21 19:40 89 34 H 117/90 98 05/21/21 19:31 91 H 32 H 117/90 95 05/21/21 19:30 98 H 25 H 117/90 97 05/21/21 19:21 88 24 117/90 96 05/21/21 19:20 89 26 H 117/90 97 05/21/21 19:16 91 H 24 97 05/21/21 19:11 91 H 20 117/90 97 05/21/21 19:01 92 H 17 117/90 98 05/21/21 18:51 93 H 18 133/82 93 05/21/21 18:41 86 23 133/82 96 05/21/21 18:33 92 H 133/82 05/21/21 18:31 92 H 21 133/82 95 05/21/21 18:21 90 20 133/82 96 05/21/21 18:11 90 30 H 133/82 95 05/21/21 18:00 87 22 133/82 93 05/21/21 17:51 102 H 21 145/91 93 05/21/21 17:41 95 H 20 145/91 95 05/21/21 17:31 89 29 H 145/91 93 05/21/21 17:21 99 H 18 145/91 92 05/21/21 17:11 92 H 14 145/91 93 05/21/21 17:00 92 H 32 H 145/91 92 01/25/22 16:51 92 H 25 H 129/86 94 05/21/21 16:41 98 H 18 129/86 92 05/21/21 16:31 94 H 20 129/86 91 05/21/21 16:21 90 19 129/86 93 05/21/21 16:14 84 18 93 05/21/21 16:11 86 18 129/86 89 05/21/21 16:00 97.8 F 86 16 129/86 90 05/21/21 15:51 91 H 14 136/70 94 05/21/21 15:41 89 29 H 136/70 93 05/21/21 15:31 92 H 25 H 136/70 94 05/21/21 15:21 100 H 18 136/70 93 05/21/21 15:11 117 H 20 136/70 96 05/21/21 15:00 94 H 28 H 136/70 94 05/21/21 14:51 92 H 17 146/109 95 05/21/21 14:41 86 15 146/109 97 05/21/21 14:31 83 13 146/109 95 05/21/21 14:21 90 13 146/109 94 05/21/21 14:11 88 15 146/109 96 05/21/21 14:00 102 H 20 146/109 96 05/21/21 13:51 89 10 L 175/108 94 - Physical Examination HEENT: Positive: PERRL Neck: Positive: trachea midline Cardiac: Positive: Regular Rhythm, Tachycardia Lungs: Positive: Decreased Breath Sounds Neuro: Positive: Grossly Intact Abdomen: Positive: Soft, Active Bowel Sounds Skin: Negative: Rash, Suspicious Lesions, Ulceration Extremities: Present: upper extr. pulses. Absent: edema - Labs and Meds CBC 05/22/21 Range/Units 06:32 WBC 6.3 (4.5-11.0) K/mm3 RBC 4.62 (3.65-5.03) M/mm3 Hgb 12.5 (11.8-15.2) gm/dl Hct 40.4 (35.5-45.6) % Plt Count 221 (140-440) K/mm3 Lymph # (Auto) 2.1 (1.2-5.4) K/mm3 [place] # (Auto) 0.7 (0.0-0.8) K/mm3 Eos # (Auto) 0.2 (0.0-0.4) K/mm3 Baso # (Auto) 0.0 (0.0-0.1) K/mm3 Comprehensive Metabolic Panel 05/22/21 Range/Units 06:32 Sodium 140 (137-145) mmol/L Potassium 4.6 (3.6-5.0) mmol/L Chloride 107.5 H (98-107) mmol/L Carbon Dioxide 22 (22-30) mmol/L BUN 16 (9-20) mg/dL Creatinine 1.5 H (0.8-1.3) mg/dL Glucose 109 H (75-100) mg/dL Calcium 9.2 (8.4-10.2) mg/dL - Imaging and Cardiology Echo: pending, report reviewed - Telemetry EKG Rhythm: Sinus Tachycardia - EKG Sinus rhythms and dysrhythmias: sinus tachycardia Repolarization changes or abnormalities: nonspecific abnormality, ST segment, and/or T wave
[2021-05-22 14:46] LABS: Basophils # (Auto) 0.1 K/mm3 (0.0-0.1); Basophils % (Auto) 0.9 % (0.0-1.8); Eosinophils # (Auto) 0.2 K/mm3 (0.0-0.4); Eosinophils % (Auto) 3.6 % (0.0-4.3); Hematocrit 37.4 % (35.5-45.6); Hemoglobin 11.8 gm/dl (11.8-15.2); Lymphocytes # (Auto) 1.9 K/mm3 (1.2-5.4); Lymphocytes % (Auto) 28.6 % (13.4-35.0); Mean Corpuscular HGB Conc 32 % (32-34); Mean Corpuscular Volume 88 fl (84-94); Monocytes # (Auto) 0.7 K/mm3 (0.0-0.8); Monocytes % (Auto) 10.3 % (0.0-7.3); Platelet Count 187 K/mm3 (140-440); Red Blood Count 4.28 M/mm3 (3.65-5.03); Red Cell Distribution Width 15.3 % (13.2-15.2)
[2021-05-22 15:00] LABS: Partial Thromboplastin Time 55.3 Sec. (24.2-36.6)
--- NOTE | 2021-05-22 15:37 | Operative Report ---
Operative Report Operative Report: Date of Procedure: 05/22/2021 Pre-operative Diagnosis: Bilateral Pulmonary Emboli with Right Heart Strain Post-operative Diagnosis: Same Procedure(s): 1. Ultrasound-Guided Access Right Common Femoral Vein 2. Ultrasound-Guided Access Right Common Femoral Vein 3. Nonselective Diagnostic Pulmonary Angiogram 4. Thrombolysis of Right Pulmonary Artery with 106 x 12 cm EKOS Thrombolysis Catheter 5. Thrombolysis of Left Pulmonary Artery with 106 x 12 cm EKOS Thrombolysis Catheter 6. Radiologic Supervision with Interpretation 7. Monitored Moderate Sedation (Total Anesthesia Time: 30 Minutes) Surgeon: Sergio Savage M.D. Marketing Outreach Coordinator: None Anesthesia: Local/Monitored Moderate Sedation Total Anesthesia Time: 30 Minutes EBL: Minimal Counts: Correct Complications: None Condition: Stable Specimen: None Indication: The patient is a 60-year-old male with a history of hypertension, diabetes, and congestive heart failure who presented with complaints of shortness of breath. A CTA of his chest demonstrated bilateral pulmonary emboli involving the main pulmonary arteries. An echocardiogram demonstrated evidence of right heart strain. Given his history of congestive heart failure it was felt that he would benefit from thrombolysis of the pulmonary emboli to prevent irreversible damage to the heart. He was given the risk, benefits, and alternative procedures and consented to the procedure. Angiographic Findings: The diagnostic pulmonary angiogram revealed flow within the proximal main pulmonary arteries however there appeared to be thrombus within bilateral distal main pulmonary arteries. Additionally there appeared to be flow within the proximal segmental branches bilaterally. The right pulmonary artery EKOS catheter was placed with the proximal tip in the proximal right main pulmonary artery and the distal tip in the subsegmental branches of the right middle pulmonary artery. The left EKOS thrombolysis catheter was placed with the proximal tip in the proximal left main pulmonary artery and the distal tip in the subsegmental branches of the left lower pulmonary artery. Description of Procedure: The patient was brought to the [facility] and laid in supine position. After timeout was performed bilateral groins were prepped and draped in normal sterile fashion. Ultrasound was used to identify the right common femoral vein and confirm patency. Once patency was confirmed the overlying skin and soft tissue was anesthetized with lidocaine. An 11 blade was used to make 2 small stab incisions and then a curved hemostat was used to bluntly dissect down to the anterior surface of the right common femoral vein under ultrasound guidance. An 18-gauge access needle was used with ultrasound guidance to into the distal access site and accessed the right common femoral vein under ultrasound guidance. A 0.035 Bentson wire was advanced into the vein and the needle was removed. The 18-gauge needle was then used to access the proximal stab incision and using ultrasound guidance was used to access the right common femoral vein. A 0.035 Bentson wire was then advanced to the vein and the needle was removed. 6 [place]ana sheaths were then advanced over each wire and into the vein by Seldinger technique. A JR4 catheter was then advanced over the Bentson wire through the most distal place sheath and into the right atrium and ventricle. The wire and catheter were then manipulated into the main pulmonary artery and a nonselective diagnostic pulmonary artery angiogram was performed with the previously described findings. The catheter and wire were then advanced into the right main pulmonary artery and eventually into the right middle pulmonary artery. The wire was left in position and the JR4 catheter was removed. The EKOS catheter was then advanced over the wire and into position and the Bentson wire was removed. The ultrasound catheter was then advanced into position and secured. I then advanced the JR4 catheter over the proximal wire and eventually into the left pulmonary artery. The catheter and wire were then advanced into the left lower pulmonary artery. The wire was left in position and after removing the catheter the EKOS catheter was advanced over the wire and into position. The wire was removed and the ultrasound catheter was advanced into the EKOS catheter. Both 6 Setswana sheaths were then secured in position with 0 silk sutures in interrupted fashion and the EKOS catheters were secured to the sheath using 0 silk sutures in interrupted fashion. The sheaths were then primed with 3000 units of heparin respectively. The coolant ports were primed with 2000 units of heparin respectively. The drug ports were primed with 4 mg of TPA respectively. All she is sent catheters were then dressed sterilely. The patient tolerated the procedure well and was transported back to his room in the [facility] in stable condition.
[2021-05-22 20:31] LABS: Basophils % (Auto) 0.5 % (0.0-1.8); Eosinophils # (Auto) 0.2 K/mm3 (0.0-0.4); Eosinophils % (Auto) 3.1 % (0.0-4.3); Hemoglobin 11.6 gm/dl (11.8-15.2); Lymphocytes # (Auto) 2.4 K/mm3 (1.2-5.4); Lymphocytes % (Auto) 34.9 % (13.4-35.0); Mean Corpuscular HGB Conc 31 % (32-34); Mean Corpuscular Volume 87 fl (84-94); Monocytes # (Auto) 0.9 K/mm3 (0.0-0.8); Monocytes % (Auto) 13.7 % (0.0-7.3); Platelet Count 199 K/mm3 (140-440); Red Blood Count 4.34 M/mm3 (3.65-5.03); Red Cell Distribution Width 15.3 % (13.2-15.2)
[2021-05-22] MEDS: ACETAMINOPHEN 325 MG TAB PO PRN (22:09)
[2021-05-23] MEDS ORDERED: SODIUM CHLORIDE 0.9% 1000 ML 1,000 ML IV SCH (00:15)
[2021-05-23] MEDS: MORPHINE 2 MG/1 ML INJ IV PRN ×3 (02:59→22:06)
[2021-05-23 03:52] LABS: Basophils % (Auto) 0.8 % (0.0-1.8); Eosinophils % (Auto) 3.6 % (0.0-4.3); Monocytes % (Auto) 12.4 % (0.0-7.3)
[2021-05-23 04:02] LABS: Eosinophils # (Auto) 0.2 K/mm3 (0.0-0.4); Hematocrit 38.1 % (35.5-45.6); Hemoglobin 11.9 gm/dl (11.8-15.2); Lymphocytes # (Auto) 1.8 K/mm3 (1.2-5.4); Mean Corpuscular HGB Conc 31 % (32-34); Mean Corpuscular Volume 88 fl (84-94); Monocytes # (Auto) 0.7 K/mm3 (0.0-0.8); Platelet Count 179 K/mm3 (140-440); Red Blood Count 4.33 M/mm3 (3.65-5.03); Red Cell Distribution Width 15.4 % (13.2-15.2)
[2021-05-23 04:03] LABS: Calcium 8.9 mg/dL (8.4-10.2)
[2021-05-23 04:07] LABS: Fibrinogen 361 mg/dl (211-480)
[2021-05-23] MEDS: hydrALAZINE 25 MG TAB PO SCH (05:14)
--- NOTE | 2021-05-23 08:02 | Progress Note ---
Assessment and Plan Assessment and plan: History of present illness: 60-year-old male with a past medical history morbid obesity, CHF, hypertension, recently diagnosed renal insufficiency, and sleep apnea (CPAP at night) presents to the hospital complaining of shortness of breath x1 day. Patient experiencing dyspnea worse on exertion. Patient called EMS from work. EMS reports room air saturation in low 90s. Patient placed on supplemental oxygen with improvement in oxygen saturation, shortness of breath, and chest tightness. Patient has been compliant with his medications. He states he was last admitted to in January 2021 to [facility] and underwent cardiac work-up including stress testing. He was diagnosed with CHF and denies diagnosis of ischemia. His physicians are affiliated with [facility]. He is vaccinated for Covid and has scheduled a booster this week. He denies fever. Admitted to [facility] Hospital Course: 05/21: Continue heparin gtt, pending ECHO. CT angiogram appears to demonstrate some right heart strain on my read but will await ECHO. Patient hemodynamically stable and in no distress. Pending cardiology and vascular evaluation. 05/22: RV strain noted on ECHO. Plan for EKOS by vascular surgery today. 05/23: s/p ekos. On room air on my encounter. Catheters to be withdrawn today. Will initiate eliquis 10 mg x 7 day total therapy and then transition to eliquis 5 mg po bid. Plan for d/c tomorrow. Anti-HTN med adjustments noted. Assessment and Plan: (1) Acute respiratory failure with hypoxia Current Visit: Yes Status: Acute Plan to address problem: Oxygen via nasal cannula, wean as sats tolerate. CT angiogram confirms bilateral central pulmonary emboli. DuoNeb by nebulizer every 4 hours. Albuterol via nebulizer every 4 hours as needed. Lasix 40 mg IV daily. --> lasix 20 mg po daily Echo 05/21/2021-left ventricular systolic function is borderline EF 45 to 50%. Mild LVH. Right ventricle is mildly hypokinetic and mildly dilated. Right v entricular systolic function could not be assessed. Atrial septum is bowed toward the left consistent with elevated right atrial pressure. Mild pulmonic regurgitation Vascular surgery evaluation Cardiology consultation (2) Bilateral pulmonary embolism Current Visit: Yes Status: Acute Plan to address problem: Oxygen via nasal cannula 3 to 5 L/min. CT angiogram confirms bilateral central pulmonary emboli. DuoNeb by nebulizer every 4 hours. Albuterol via nebulizer every 4 hours as needed. Echo 05/21/2021-left ventricular systolic function is borderline EF 45 to 50%. Mild LVH. Right ventricle is mildly hypokinetic and mildly dilated. Right ventricular systolic function could not be assessed. Atrial septum is bowed toward the left consistent with elevated right atrial pressure. Mild pulmonic regurgitation Vascular surgery evaluation, s/p ekos. Cardiology consultation - d/c heparin, start eliquis 10 mg po bid x 7 days, transition to 5 mg po bid. (3) Chronic Kidney Disease Current Visit: Yes Status: Acute Plan to address problem: Avoid nephrotoxic drugs. Renally dose medication. Recheck BMP in the morning if needed will consult nephrology (4) History of CHF (congestive heart failure) Current Visit: Yes Status: Acute Plan to address problem: Fluid restriction. Daily weight. Maintain input output. Echocardiogram. Lasix 40 mg IV daily. Cardiology evaluation (5) Morbid obesity Current Visit: Yes Status: Acute Plan to address problem: Patient counseled regarding weight reduction. Outpatient follow-up with bariatric surgery (6) Sleep apnea Current Visit: Yes Status: Acute Plan to address problem: Oxygen via nasal cannula 3 to 5 L/min. DuoNeb by nebulizer every 4 hours. Albuterol via nebulizer every 4 hours as needed. (7) Uncontrolled hypertension Current Visit: Yes Status: Acute Plan to address problem: IV labetalol for hypertension. Lisinopril 5 mg p.o. daily. Continue home m edication (8) DVT prophylaxis Current Visit: Yes Status: Acute Plan to address problem: Patient is on heparin drip per DVT prophylaxis. Pepcid 20 mg p.o. twice daily for GI prophylaxis. Patient is a full code #Advance care planning Disease education conducted, care plan discussed, diagnoses discussed, prognosis discussed, patient is full code, patient acknowledges understanding and agree with care plan, +30 minutes. Dispo: IMCU The high probability of a clinically significant, sudden or life threatening deterioration of the [cardiac, pulmonary] system(s) required my full and direct attention, intervention and personal management. The aggregate critical care time was [60] minutes. This time is in addition to time spent performing reported procedures but includes the following: [x] Data Review and interpretation [x] Patient assessment and monitoring of vital signs [x] Documentation [x] Medication orders and management History Interval history: No acute complaints on my encounter this AM. Hospitalist Physical - Physical exam Narrative exam: General appearance: Present: no acute distress, well-nourished, morbid obesity, currently on nasal cannula. - EENT Eyes: Present: PERRL ENT: hearing intact, clear oral mucosa - Neck Neck: Present: supple, normal ROM - Respiratory Respiratory effort: normal Respiratory: bilateral: rales - Cardiovascular Heart Sounds: Present: S1 & S2. Absent: rub, click - Extremities Extremities: pulses symmetrical Extremity abnormal: edema Peripheral Pulses: within normal limits - Abdominal General gastrointestinal: Present: soft, non-tender, non-distended, normal bowel sounds Male genitourinary: Present: normal - Integumentary Integumentary: Present: clear, warm, dry. EKOS catheter in place. - Musculoskeletal Musculoskeletal: gait normal, strength equal bilaterally - Psychiatric Psychiatric: appropriate mood/affect, intact judgment & insight - Neurologic Neurologic: CNII-XII intact, moves all extremities - Constitutional Vitals: Temp Pulse Resp BP Pulse Ox 97.9 F 79 26 H 184/100 92 05/23/21 04:00 05/23/21 06:41 05/23/21 06:41 05/23/21 06:41 05/23/21 06:41 General appearance: Present: no acute distress HEART Score - HEART Score Troponin: Troponin T 0.028 ng/mL (0.00-0.029) 05/21/21 05:09 Results - Labs CBC & Chem 7: 05/23/21 08:15 05/23/21 03:15 Labs: Laboratory Last Values WBC 5.4 K/mm3 (4.5-11.0) 05/23/21 03:15 RBC 4.33 M/mm3 (3.65-5.03) 05/23/21 03:15 Hgb 11.9 gm/dl (11.8-15.2) 05/23/21 03:15 Hct 38.1 % (35.5-45.6) 05/23/21 03:15 MCV 88 fl (84-94) 05/23/21 03:15 MCH 27 pg (28-32) L 05/23/21 03:15 MCHC 31 % (32-34) L 05/23/21 03:15 RDW 15.4 % (13.2-15.2) H 05/23/21 03:15 Plt Count 179 K/mm3 (140-440) 05/23/21 03:15 Lymph % (Auto) 34.0 % (13.4-35.0) 05/23/21 03:15 [place] % (Auto) 12.4 % (0.0-7.3) H 05/23/21 03:15 Eos % (Auto) 3.6 % (0.0-4.3) 05/23/21 03:15 Baso % (Auto) 0.8 % (0.0-1.8) 05/23/21 03:15 Lymph # (Auto) 1.8 K/mm3 (1.2-5.4) 05/23/21 03:15 [place] # (Auto) 0.7 K/mm3 (0.0-0.8) 05/23/21 03:15 Eos # (Auto) 0.2 K/mm3 (0.0-0.4) 05/23/21 03:15 Baso # (Auto) 0.0 K/mm3 (0.0-0.1) 05/23/21 03:15 Seg Neutrophils % 49.2 % (40.0-70.0) 05/23/21 03:15 Seg Neutrophils # 2.6 K/mm3 (1.8-7.7) 05/23/21 03:15 PT 14.3 Sec. (12.2-14.9) 05/22/21 14:18 INR 1.00 (0.87-1.13) 05/22/21 14:18 APTT 55.3 Sec. (24.2-36.6) H 05/22/21 14:18 Fibrinogen 361 mg/dl (211-480) 05/23/21 03:15 Heparin Anti-Xa Level < 0.10 U.I./ml (0.3-0.7) L 05/23/21 03:15 Sodium 141 mmol/L (137-145) 05/23/21 03:15 Potassium 4.0 mmol/L (3.6-5.0) 05/23/21 03:15 Chloride 108.0 mmol/L (98-107) H 05/23/21 03:15 Carbon Dioxide 19 mmol/L (22-30) L 05/23/21 03:15 Anion Gap 18 mmol/L 05/23/21 03:15 BUN 14 mg/dL (9-20) 05/23/21 03:15 Creatinine 1.4 mg/dL (0.8-1.3) H 05/23/21 03:15 Estimated GFR 52 ml/min 05/23/21 03:15 BUN/Creatinine Ratio 10 % 05/23/21 03:15 Glucose 94 mg/dL (75-100) 05/23/21 03:15 POC Glucose 88 mg/dL (70-105) 05/22/21 22:38 Calcium 8.9 mg/dL (8.4-10.2) 05/23/21 03:15 Total Bilirubin 0.50 mg/dL (0.1-1.2) 05/20/21 23:41 AST 25 units/L (5-40) 05/20/21 23:41 ALT 17 units/L (7-56) 05/20/21 23:41 Alkaline Phosphatase 97 units/L (35-129) 05/20/21 23:41 Total Creatine Kinase 230 units/L (55-170) H 05/20/21 23:41 CK-MB (CK-2) 2.3 ng/mL (0.0-4.0) 05/20/21 23:41 CK-MB (CK-2) Rel Index 1.0 (0-4) 05/20/21 23:41 Troponin T 0.028 ng/mL (0.00-0.029) 05/21/21 05:09 NT-Pro-B Natriuret Pep 462.9 pg/mL (0-900) 05/20/21 23:41 Total Protein 8.1 g/dL (6.3-8.2) 05/20/21 23:41 Albumin 4.3 g/dL (3.9-5) 05/20/21 23:41 Albumin/Globulin Ratio 1.1 % 05/20/21 23:41 Coronavirus (PCR) Negative (Negative) 05/21/21 08:30 Active Medications - Current Medications Current Medications: Generic Name Dose Route Start Last Admin Trade Name Freq PRN Reason Stop Dose Admin Acetaminophen 650 mg 05/21/21 04:29 05/22/21 22:09 Acetaminophen 325 Mg Tab PO 650 mg Q4H PRN Administration Pain MILD(1-3)/Fever >100.5/KENNEDY Albuterol 2.5 mg 05/21/21 04:29 Albuterol 2.5 Mg/3 Ml Nebu IH Q4HRT PRN Shortness Of Breath Albuterol/Ipratropium 1 ampul 05/21/21 08:00 Ipratropium/Albuterol Sulfate 3 Ml Ampul.Neb IH Q6HRT YENNI Dextrose 0 ml 05/22/21 06:55 Dextrose 10% *Hypoglycemia IV PRN PRN Hypoglycemia Famotidine 20 mg 05/21/21 10:00 05/22/21 22:02 Famotidine 20 Mg Tab PO 20 mg BID YENNI Administration Hydralazine HCl 75 mg 05/22/21 14:00 05/23/21 05:14 Hydralazine 25 Mg Tab PO 75 mg Q8HR YENNI Administration Hydromorphone HCl 0.5 mg 05/21/21 04:29 Hydromorphone 1 Mg/1 Ml Inj IV Q3H PRN Pain , Severe (7-10) Sodium Chloride 1,000 mls @ 30 mls/hr 05/22/21 12:15 Nacl 0.9% 1000 Ml IV DIRECT YENNI Alteplase, Recombinant 10 mg/ 250 mls @ 10 mls/hr 05/22/21 11:59 Sodium Chloride EKOSDLUMEN 05/23/21 12:58 DIRECT STA Alteplase, Recombinant 10 mg/ 250 mls @ 10 mls/hr 05/22/21 11:59 Sodium Chloride IV 05/23/21 12:58 DIRECT STA Sodium Chloride 1,000 mls @ 30 mls/hr 05/22/21 12:15 Nacl 0.9% 1000 Ml SHEATH DIRECT YENNI Sodium Chloride 1,000 mls @ 35 mls/hr 05/22/21 12:15 Nacl 0.9% 1000 Ml EKOSCLUMEN DIRECT YENNI Sodium Chloride 1,000 mls @ 30 mls/hr 05/22/21 12:15 Nacl 0.9% 1000 Ml SHEATH DIRECT YENNI Sodium Chloride 1,000 mls @ 35 mls/hr 05/22/21 12:15 Nacl 0.9% 1000 Ml EKOSCLUMEN DIRECT YENNI Heparin Sodium/Sodium Chloride 25,000 unit in 500 mls @ 10 mls/hr 05/22/21 12:00 Heparin/ 0.45% Nacl-25,000 Unit/500 Ml SHEATH DIRECT YENNI Protocol 500 UNITS/HR Heparin Sodium/Sodium Chloride 25,000 unit in 500 mls @ 10 mls/hr 05/22/21 12:00 Heparin/ 0.45% Nacl-25,000 Unit/500 Ml SHEATH DIRECT YENNI Protocol 500 UNITS/HR Insulin Human Lispro 0 unit 05/21/21 07:30 05/22/21 22:39 Insulin Lispro 100 Unit/Ml SUB-Q Not Given ACHS YENNI Protocol Isosorbide Mononitrate 30 mg 05/21/21 11:00 05/22/21 09:30 Isosorbide Mononitrate Er 30 Mg Tab PO 30 mg QDAY YENNI Administration Labetalol HCl 10 mg 05/21/21 04:42 05/23/21 03:43 Labetalol 20 Mg/4 Ml Inj IV 10 mg Q6H PRN Administration Blood Pressure Metoprolol Tartrate 100 mg 05/22/21 13:00 05/22/21 22:01 Metoprolol Tartrate 50 Mg Tab PO 100 mg BID YENNI Administration Morphine Sulfate 2 mg 05/21/21 04:29 05/23/21 02:59 Morphine 2 Mg/1 Ml Inj IV 2 mg Q4H PRN Administration Pain, Moderate (4-6) Ondansetron HCl 4 mg 05/21/21 04:29 Ondansetron 4 Mg/2 Ml Inj IV Q8H PRN Nausea And Vomiting Sodium Chloride 10 ml 05/21/21 10:00 05/22/21 22:02 Sodium Chloride 0.9% 10 Ml Flush Syringe IV 10 ml BID YENNI Administration Sodium Chloride 10 ml 05/21/21 04:29 Sodium Chloride 0.9% 10 Ml Flush Syringe IV PRN PRN LINE FLUSH Sodium Chloride 10 ml 05/21/21 09:02 Sodium Chloride 0.9% 50 Ml Ivpb IV PRN PRN FLUSH Nutrition/Malnutrition Assess - Dietary Evaluation Nutrition/Malnutrition Findings: Nutrition Notes Start: 05/21/21 11:45 Freq: Status: Active Protocol: Document 05/21/21 11:45 ABIGAIL (Rec: 05/21/21 11:51 ABIGAIL [id number]) Nutrition Notes Need for Assessment generated from: MD Order,Education Initial or Follow up Brief Note Current Diagnosis CKD(stage I-IV),Hypertension, Respiratory Failure Other Pertinent Diagnosis Bilateral pulmonary embolism, CHF. Current Diet Cardiac/Consistent Carbohydrates Diet (since B ). Height 5 ft 11 in Weight 179.623 kg [place] Body Weight (kg) 78.18 BMI 55.2 Weight change and time frame None reported at admission. Weight Status Morbidly Obese Subjective/Other Information RD consult for nutrition education and skin risk assessment. Pt shows no signs of concern for skin risk at the time, according to Physical Assessment History notes. Pt still on ED, not a candidate for Nutrition Education at the time, will assess feasibility on F/U. No reports available on Pt's PO intake of meals at the time . Percent of energy/protein needs met: Prescribed Cardiac/Consistent Carbohydrates Diet provides for energy/protein needs (1, 977 Kcal/86 g) during LOS. Food Allergy No Skin Integrity/Comment Clear, warm, dry. Nutrition Intervention Follow-Up By: 05/28/21 Additional Comments Nutrition education will be provided on F/U if feasible. Continue monitoring food tolerance, %PO intake of meals , and BM.
[2021-05-23] MEDS: IPRATROPIUM/ALBUTEROL SULFATE 3 ML AMPUL.NEB IH SCH ×8 (08:47→21:08)
[2021-05-23 09:05] LABS: Basophils % (Auto) 0.5 % (0.0-1.8); Eosinophils # (Auto) 0.2 K/mm3 (0.0-0.4); Hematocrit 38.3 % (35.5-45.6); Hemoglobin 11.8 gm/dl (11.8-15.2); Lymphocytes # (Auto) 1.8 K/mm3 (1.2-5.4); Lymphocytes % (Auto) 29.9 % (13.4-35.0); Mean Corpuscular HGB Conc 31 % (32-34); Mean Corpuscular Volume 87 fl (84-94); Monocytes # (Auto) 0.7 K/mm3 (0.0-0.8); Monocytes % (Auto) 11.9 % (0.0-7.3); Platelet Count 204 K/mm3 (140-440); Red Blood Count 4.41 M/mm3 (3.65-5.03); Red Cell Distribution Width 15.1 % (13.2-15.2)
[2021-05-23] MEDS: METOPROLOL TARTRATE 50 MG TAB PO SCH ×2 (09:25→22:05)
[2021-05-23] MEDS: INSULIN LISPRO 100 UNIT/ML SUB-Q SCH ×4 (09:26→22:19)
[2021-05-23] MEDS: FAMOTIDINE 20 MG TAB PO SCH ×2 (09:26→22:04)
[2021-05-23] MEDS ORDERED: hydrALAZINE 25 MG TAB PO SCH ×2 (10:00)
--- NOTE | 2021-05-23 10:04 | Progress Note ---
Assessment and Plan EKOS will be discontinued today and catheters and sheaths removed. Patient can be transpositioned to Eliquis 5 mg p.o.twice daily. He will need to follow-up with us in the outpatient setting in 2weeks. Okay to discharge home tomorrow. Subjective Date of service: 05/23/21 Principal diagnosis: Bilateral PEs Interval history: Patient with a history of bilateral EKOS placement secondary to submassive pulmonary embolism. On examination today, the patient is breathing easily and able to hold conversation satting 97% on room air. No chest pain or shortness of breath noted. Patient currently on heparin in association with his EKOS. Objective - Constitutional Vitals: Vital Signs - 12hr 05/22/21 05/22/21 05/22/21 22:11 22:21 22:31 Temperature Pulse Rate 95 H 89 87 Pulse Rate [ Bilateral] Pulse Rate [ From Monitor] Respiratory 11 L 26 H 24 Rate Respiratory Rate [Bilateral ] Blood Pressure 176/104 176/104 176/104 O2 Sat by Pulse 97 95 98 Oximetry 05/22/21 05/22/21 05/22/21 22:41 22:51 23:00 Temperature Pulse Rate 93 H 94 H 87 Pulse Rate [ Bilateral] Pulse Rate [ From Monitor] Respiratory 23 22 20 Rate Respiratory Rate [Bilateral ] Blood Pressure 176/104 176/104 145/110 O2 Sat by Pulse 93 94 93 Oximetry 05/22/21 05/22/21 05/22/21 23:11 23:21 23:31 Temperature Pulse Rate 81 82 86 Pulse Rate [ Bilateral] Pulse Rate [ From Monitor] Respiratory 29 H 26 H 17 Rate Respiratory Rate [Bilateral ] Blood Pressure 145/110 145/110 145/110 O2 Sat by Pulse 94 86 90 Oximetry 05/22/21 05/22/21 05/22/21 23:41 23:47 23:51 Temperature Pulse Rate 88 87 87 Pulse Rate [ Bilateral] Pulse Rate [ From Monitor] Respiratory 22 19 23 Rate Respiratory Rate [Bilateral ] Blood Pressure 145/110 145/110 145/110 O2 Sat by Pulse 94 97 98 Oximetry 05/23/21 05/23/21 05/23/21 00:00 00:11 00:21 Temperature 97.8 F Pulse Rate 79 78 86 Pulse Rate [ Bilateral] Pulse Rate [ 90 From Monitor] Respiratory 18 18 16 Rate Respiratory Rate [Bilateral ] Blood Pressure 152/90 152/90 152/90 O2 Sat by Pulse 94 93 90 Oximetry 05/23/21 05/23/21 05/23/21 00:31 00:41 00:51 Temperature Pulse Rate 78 83 77 Pulse Rate [ Bilateral] Pulse Rate [ From Monitor] Respiratory 25 H 15 24 Rate Respiratory Rate [Bilateral ] Blood Pressure 152/90 152/90 152/90 O2 Sat by Pulse 90 92 83 L Oximetry 05/23/21 05/23/21 05/23/21 01:01 01:11 01:21 Temperature Pulse Rate 77 86 86 Pulse Rate [ Bilateral] Pulse Rate [ From Monitor] Respiratory 24 16 32 H Rate Respiratory Rate [Bilateral ] Blood Pressure 165/78 165/78 165/78 O2 Sat by Pulse 84 98 95 Oximetry 05/23/21 05/23/21 05/23/21 01:31 01:41 01:51 Temperature Pulse Rate 82 84 89 Pulse Rate [ Bilateral] Pulse Rate [ From Monitor] Respiratory 24 22 Rate Respiratory Rate [Bilateral ] Blood Pressure 165/78 165/78 165/78 O2 Sat by Pulse 100 89 89 Oximetry 05/23/21 05/23/21 05/23/21 02:00 02:11 02:21 Temperature Pulse Rate 88 76 79 Pulse Rate [ Bilateral] Pulse Rate [ From Monitor] Respiratory 24 23 13 Rate Respiratory Rate [Bilateral ] Blood Pressure 147/93 147/93 147/93 O2 Sat by Pulse 83 L 92 94 Oximetry 05/23/21 05/23/21 05/23/21 02:31 02:41 02:51 Temperature Pulse Rate 94 H 86 87 Pulse Rate [ Bilateral] Pulse Rate [ From Monitor] Respiratory 21 25 H 30 H Rate Respiratory Rate [Bilateral ] Blood Pressure 147/93 147/93 147/93 O2 Sat by Pulse 93 92 96 Oximetry 05/23/21 05/23/21 05/23/21 03:00 03:11 03:21 Temperature Pulse Rate 88 91 H 80 Pulse Rate [ Bilateral] Pulse Rate [ From Monitor] Respiratory 22 23 21 Rate Respiratory Rate [Bilateral ] Blood Pressure 171/117 150/112 150/112 O2 Sat by Pulse 95 94 95 Oximetry 05/23/21 05/23/21 05/23/21 03:31 03:41 03:43 Temperature Pulse Rate 87 89 86 Pulse Rate [ Bilateral] Pulse Rate [ From Monitor] Respiratory 21 23 Rate Respiratory Rate [Bilateral ] Blood Pressure 150/112 179/115 175/115 O2 Sat by Pulse 98 98 Oximetry 05/23/21 05/23/21 05/23/21 03:50 04:00 04:11 Temperature 97.9 F Pulse Rate 89 89 82 Pulse Rate [ Bilateral] Pulse Rate [ 90 From Monitor] Respiratory 15 18 30 H Rate Respiratory Rate [Bilateral ] Blood Pressure 166/106 165/117 165/117 O2 Sat by Pulse 93 94 88 Oximetry 05/23/21 05/23/21 05/23/21 04:21 04:30 04:41 Temperature Pulse Rate 80 89 78 Pulse Rate [ Bilateral] Pulse Rate [ From Monitor] Respiratory 21 23 24 Rate Respiratory Rate [Bilateral ] Blood Pressure 168/127 145/105 145/105 O2 Sat by Pulse 84 98 85 Oximetry 05/23/21 05/23/21 05/23/21 04:51 05:00 05:11 Temperature Pulse Rate 84 91 H 84 Pulse Rate [ Bilateral] Pulse Rate [ From Monitor] Respiratory 21 27 H 20 Rate Respiratory Rate [Bilateral ] Blood Pressure 138/104 163/117 163/117 O2 Sat by Pulse 90 99 97 Oximetry 05/23/21 05/23/21 05/23/21 05:14 05:20 05:30 Temperature Pulse Rate 85 87 93 H Pulse Rate [ Bilateral] Pulse Rate [ From Monitor] Respiratory 16 20 Rate Respiratory Rate [Bilateral ] Blood Pressure 163/117 173/126 152/119 O2 Sat by Pulse 93 97 Oximetry 05/23/21 05/23/21 05/23/21 05:41 05:51 06:00 Temperature Pulse Rate 99 H 88 87 Pulse Rate [ Bilateral] Pulse Rate [ From Monitor] Respiratory 24 22 Rate Respiratory Rate [Bilateral ] Blood Pressure 152/119 171/114 174/122 O2 Sat by Pulse 94 92 88 Oximetry 05/23/21 05/23/21 05/23/21 06:11 06:21 06:30 Temperature Pulse Rate 90 88 90 Pulse Rate [ Bilateral] Pulse Rate [ From Monitor] Respiratory 22 14 27 H Rate Respiratory Rate [Bilateral ] Blood Pressure 174/110 183/98 184/100 O2 Sat by Pulse 94 94 95 Oximetry 05/23/21 05/23/21 05/23/21 06:41 06:50 07:00 Temperature Pulse Rate 79 87 80 Pulse Rate [ Bilateral] Pulse Rate [ From Monitor] Respiratory 26 H 20 15 Rate Respiratory Rate [Bilateral ] Blood Pressure 184/100 211/132 176/107 O2 Sat by Pulse 92 94 95 Oximetry 05/23/21 05/23/21 05/23/21 07:10 07:20 07:30 Temperature Pulse Rate 83 90 88 Pulse Rate [ Bilateral] Pulse Rate [ From Monitor] Respiratory 25 H 20 25 H Rate Respiratory Rate [Bilateral ] Blood Pressure 176/107 180/112 161/105 O2 Sat by Pulse 95 97 97 Oximetry 05/23/21 05/23/21 05/23/21 07:41 07:51 08:00 Temperature 98.0 F Pulse Rate 94 H 95 H 90 Pulse Rate [ Bilateral] Pulse Rate [ From Monitor] Respiratory 11 L 12 13 Rate Respiratory Rate [Bilateral ] Blood Pressure 184/100 177/124 179/104 O2 Sat by Pulse 96 96 96 Oximetry 05/23/21 05/23/21 05/23/21 08:11 08:21 08:30 Temperature Pulse Rate 97 H 94 H 99 H Pulse Rate [ Bilateral] Pulse Rate [ From Monitor] Respiratory 15 16 13 Rate Respiratory Rate [Bilateral ] Blood Pressure 179/104 184/119 174/126 O2 Sat by Pulse 97 98 97 Oximetry 05/23/21 05/23/21 05/23/21 08:39 08:41 08:50 Temperature Pulse Rate 93 H Pulse Rate [ 91 H Bilateral] Pulse Rate [ From Monitor] Respiratory 19 Rate Respiratory 23 Rate [Bilateral ] Blood Pressure 174/126 O2 Sat by Pulse 96 97 Oximetry 05/23/21 05/23/21 05/23/21 08:51 09:00 09:11 Temperature Pulse Rate 94 H 98 H 97 H Pulse Rate [ Bilateral] Pulse Rate [ From Monitor] Respiratory 26 H 19 15 Rate Respiratory Rate [Bilateral ] Blood Pressure 180/128 190/131 190/131 O2 Sat by Pulse 99 100 95 Oximetry 05/23/21 05/23/21 05/23/21 09:21 09:24 09:25 Temperature Pulse Rate 99 H 98 H 95 H Pulse Rate [ Bilateral] Pulse Rate [ From Monitor] Respiratory 12 Rate Respiratory Rate [Bilateral ] Blood Pressure 195/129 195/100 195/100 O2 Sat by Pulse Oximetry 05/23/21 05/23/21 05/23/21 09:30 09:41 09:51 Temperature Pulse Rate 96 H 95 H 91 H Pulse Rate [ Bilateral] Pulse Rate [ From Monitor] Respiratory 23 16 20 Rate Respiratory Rate [Bilateral ] Blood Pressure 191/120 191/120 172/113 O2 Sat by Pulse 95 95 Oximetry General appearance: Present: no acute distress, obese - EENT Eyes: EOM intact ENT: hearing intact - Neck Neck: supple, normal ROM - Respiratory Respiratory effort: normal - Gastrointestinal General gastrointestinal: Present: deferred Rectal Exam: deferred - Genitourinary Male genitourinary: deferred - Psychiatric Psychiatric: appropriate mood/affect, cooperative - Labs CBC & Chem 7: 05/23/21 08:15 05/23/21 03:15 Labs: Abnormal lab results 05/22/21 05/22/21 05/22/21 Range/Units 11:06 11:42 14:18 Hgb (11.8-15.2) gm/dl MCH (28-32) pg MCHC (32-34) % RDW (13.2-15.2) % [place] % (Auto) (0.0-7.3) % [place] # (Auto) (0.0-0.8) K/mm3 APTT 55.3 H (24.2-36.6) Sec. Heparin Anti-Xa Level (0.3-0.7) U.I./ml Chloride (98-107) mmol/L Carbon Dioxide (22-30) mmol/L Creatinine 1.5 H (0.8-1.3) mg/dL Glucose 103 H (75-100) mg/dL POC Glucose 112 H (70-105) mg/dL 05/22/21 05/22/21 05/22/21 Range/Units 14:40 20:06 20:06 Hgb 11.6 L (11.8-15.2) gm/dl MCH 27 L (28-32) pg MCHC 31 L (32-34) % RDW 15.3 H 15.3 H (13.2-15.2) % [place] % (Auto) 10.3 H 13.7 H (0.0-7.3) % [place] # (Auto) 0.9 H (0.0-0.8) K/mm3 APTT (24.2-36.6) Sec. Heparin Anti-Xa Level 0.27 L (0.3-0.7) U.I./ml Chloride (98-107) mmol/L Carbon Dioxide (22-30) mmol/L Creatinine (0.8-1.3) mg/dL Glucose (75-100) mg/dL POC Glucose (70-105) mg/dL 05/23/21 05/23/21 05/23/21 Range/Units 03:15 03:15 03:15 Hgb (11.8-15.2) gm/dl MCH 27 L (28-32) pg MCHC 31 L (32-34) % RDW 15.4 H (13.2-15.2) % [place] % (Auto) 12.4 H (0.0-7.3) % [place] # (Auto) (0.0-0.8) K/mm3 APTT (24.2-36.6) Sec. Heparin Anti-Xa Level < 0.10 L (0.3-0.7) U.I./ml Chloride 108.0 H (98-107) mmol/L Carbon Dioxide 19 L (22-30) mmol/L Creatinine 1.4 H (0.8-1.3) mg/dL Glucose (75-100) mg/dL POC Glucose (70-105) mg/dL 05/23/21 Range/Units 08:15 Hgb (11.8-15.2) gm/dl MCH 27 L (28-32) pg MCHC 31 L (32-34) % RDW (13.2-15.2) % [place] % (Auto) 11.9 H (0.0-7.3) % [place] # (Auto) (0.0-0.8) K/mm3 APTT (24.2-36.6) Sec. Heparin Anti-Xa Level (0.3-0.7) U.I./ml Chloride (98-107) mmol/L Carbon Dioxide (22-30) mmol/L Creatinine (0.8-1.3) mg/dL Glucose (75-100) mg/dL POC Glucose (70-105) mg/dL Medications & Allergies - Medications Allergies/Adverse Reactions: Allergies No Known Allergies Allergy (Verified 05/20/21 23:05) Home Medications: Home Medications Medication Instructions Recorded Confirmed Last Taken Type Aspirin [[place]] 81 mg PO DAILY 05/21/21 05/21/21 1 Day Ago History ~05/20/21 Losartan [Cozaar] 100 mg PO QDAY 05/21/21 05/21/21 1 Day Ago History ~05/20/21 Metformin HCl [metFORMIN] 1,000 mg PO BID 05/21/21 05/21/21 1 Day Ago History ~05/20/21 Spironolactone [Aldactone] 25 mg PO QDAY 05/21/21 05/21/21 1 Day Ago History ~05/20/21 carvediloL [Coreg] 25 mg PO BID 05/21/21 05/21/21 1 Day Ago History ~05/20/21 glipiZIDE [Glucotrol] 5 mg PO QDAY 05/21/21 05/21/21 1 Day Ago History ~05/20/21 hydrALAZINE [Apresoline] 50 mg PO TID 05/21/21 05/21/21 1 Day Ago History ~05/20/21 Active Medications: Generic Name Dose Route Start Last Admin Trade Name Freq PRN Reason Stop Dose Admin Acetaminophen 650 mg 05/21/21 04:29 05/22/21 22:09 Acetaminophen 325 Mg Tab PO 650 mg Q4H PRN Administration Pain MILD(1-3)/Fever >100.5/KENNEDY Albuterol 2.5 mg 05/21/21 04:29 Albuterol 2.5 Mg/3 Ml Nebu IH Q4HRT PRN Shortness Of Breath Albuterol/Ipratropium 1 ampul 05/21/21 08:00 05/23/21 08:47 Ipratropium/Albuterol Sulfate 3 Ml Ampul.Neb IH 1 ampul Q6HRT YENNI Administration Dextrose 0 ml 05/22/21 06:55 Dextrose 10% *Hypoglycemia IV PRN PRN Hypoglycemia Famotidine 20 mg 05/21/21 10:00 05/22/21 22:02 Famotidine 20 Mg Tab PO 20 mg BID YENNI Administration Hydralazine HCl 100 mg 05/23/21 14:00 Hydralazine 100 Mg Tab PO Q8HR YENNI Hydralazine HCl 25 mg 05/23/21 10:00 Hydralazine 25 Mg Tab PO 05/23/21 11:00 ONCE@1000 YENNI Hydromorphone HCl 0.5 mg 05/21/21 04:29 Hydromorphone 1 Mg/1 Ml Inj IV Q3H PRN Pain , Severe (7-10) Sodium Chloride 1,000 mls @ 30 mls/hr 05/22/21 12:15 Nacl 0.9% 1000 Ml IV DIRECT YENNI Alteplase, Recombinant 10 mg/ 250 mls @ 10 mls/hr 05/22/21 11:59 Sodium Chloride EKOSDLUMEN 05/23/21 12:58 DIRECT STA Alteplase, Recombinant 10 mg/ 250 mls @ 10 mls/hr 05/22/21 11:59 Sodium Chloride IV 05/23/21 12:58 DIRECT STA Sodium Chloride 1,000 mls @ 30 mls/hr 05/22/21 12:15 Nacl 0.9% 1000 Ml SHEATH DIRECT YENNI Sodium Chloride 1,000 mls @ 35 mls/hr 05/22/21 12:15 Nacl 0.9% 1000 Ml EKOSCLUMEN DIRECT YENNI Sodium Chloride 1,000 mls @ 30 mls/hr 05/22/21 12:15 Nacl 0.9% 1000 Ml SHEATH DIRECT YENNI Sodium Chloride 1,000 mls @ 35 mls/hr 05/22/21 12:15 Nacl 0.9% 1000 Ml EKOSCLUMEN DIRECT YENNI Heparin Sodium/Sodium Chloride 25,000 unit in 500 mls @ 10 mls/hr 05/22/21 12:00 Heparin/ 0.45% Nacl-25,000 Unit/500 Ml SHEATH DIRECT YENNI Protocol 500 UNITS/HR Heparin Sodium/Sodium Chloride 25,000 unit in 500 mls @ 10 mls/hr 05/22/21 12:00 Heparin/ 0.45% Nacl-25,000 Unit/500 Ml SHEATH DIRECT [facility] Protocol 500 UNITS/HR Insulin Human Lispro 0 unit 05/21/21 07:30 05/23/21 09:26 Insulin Lispro 100 Unit/Ml SUB-Q Not Given ACHS [facility] Protocol Isosorbide Mononitrate 30 mg 05/21/21 11:00 05/23/21 09:24 Isosorbide Mononitrate Er 30 Mg Tab PO 30 mg QDAY YENNI Administration Labetalol HCl 20 mg 05/23/21 08:05 05/23/21 09:30 Labetalol 20 Mg/4 Ml Inj IV 20 mg Q4H PRN Administration Blood Pressure Metoprolol Tartrate 100 mg 05/22/21 13:00 05/23/21 09:25 Metoprolol Tartrate 50 Mg Tab PO 100 mg BID YENNI Administration Morphine Sulfate 2 mg 05/21/21 04:29 05/23/21 02:59 Morphine 2 Mg/1 Ml Inj IV 2 mg Q4H PRN Administration Pain, Moderate (4-6) Ondansetron HCl 4 mg 05/21/21 04:29 Ondansetron 4 Mg/2 Ml Inj IV Q8H PRN Nausea And Vomiting Sodium Chloride 10 ml 05/21/21 10:00 05/22/21 22:02 Sodium Chloride 0.9% 10 Ml Flush Syringe IV 10 ml BID YENNI Administration Sodium Chloride 10 ml 05/21/21 04:29 Sodium Chloride 0.9% 10 Ml Flush Syringe IV PRN PRN LINE FLUSH Sodium Chloride 10 ml 05/21/21 09:02 Sodium Chloride 0.9% 50 Ml Ivpb IV PRN PRN FLUSH HEART Score - HEART Score Troponin: Troponin T 0.028 ng/mL (0.00-0.029) 05/21/21 05:09
--- NOTE | 2021-05-23 12:02 | Progress Note ---
Assessment and Plan Patient is 52-year-old male with a past medical history of hypertension, CHF, morbid obesity, renal insufficiency, and sleep apnea who presents to the ED for shortness of breath x1 day prior to admission. Acute hypoxic respiratory failure-patient on NC Bilateral pulmonary embolisms-vascular following Hypertensive urgency CKD History of CHF Morbid obesity Echo 05/21/2021-left ventricular systolic function is borderline EF 45 to 50%. Mild LVH. Right ventricle is mildly hypokinetic and mildly dilated. Right ventricular systolic function could not be assessed. Atrial septum is bowed toward the left consistent with elevated right atrial pressure. Mild pulmonic regurgitation Plan: Patient still remains hypertensive will increase to hydralazine 100 mg p.o. every 8 hours and initiate amlodipine 5 mg p.o. daily Continue Imdur 30 mg p.o. daily,metoprolol 1000 mg p.o. twice daily Requested records from [facility] regarding patient's recent cardiac work-up Patient seen in conjunction with Dr. Penn who agrees with this plan of care - Patient Problems (1) Acute respiratory failure Current Visit: Yes Status: Acute (2) Bilateral pulmonary embolism Current Visit: Yes Status: Acute (3) CRI (chronic renal insufficiency) Current Visit: Yes Status: Acute (4) History of CHF (congestive heart failure) Current Visit: Yes Status: Acute (5) Morbid obesity Current Visit: Yes Status: Acute (6) Sleep apnea Current Visit: Yes Status: Acute (7) Uncontrolled hypertension Current Visit: Yes Status: Acute Subjective Date of service: 05/23/21 Principal diagnosis: Bilateral PEs Interval history: Patient resting in bed in no acute distress Patient sinus 90s on monitor no events Objective Vital Signs Temp Pulse Pulse Pulse Resp Resp Resp 05/23/21 11:48 98.1 F 05/23/21 10:41 89 16 05/23/21 10:30 90 16 05/23/21 10:21 93 H 24 05/23/21 10:11 90 19 05/23/21 10:00 89 22 05/23/21 09:51 91 H 20 05/23/21 09:41 95 H 16 05/23/21 09:30 96 H 23 05/23/21 09:25 95 H 05/23/21 09:24 98 H 05/23/21 09:21 99 H 12 05/23/21 09:11 97 H 15 05/23/21 09:00 98 H 19 05/23/21 08:51 94 H 26 H 05/23/21 08:50 91 H 23 05/23/21 08:41 93 H 19 05/23/21 08:39 05/23/21 08:30 99 H 13 05/23/21 08:21 94 H 16 05/23/21 08:15 98 H 05/23/21 08:11 97 H 15 05/23/21 08:00 98.0 F 90 13 05/23/21 07:51 95 H 12 05/23/21 07:41 94 H 11 L 05/23/21 07:30 88 25 H 05/23/21 07:20 90 20 05/23/21 07:10 83 25 H 05/23/21 07:00 80 15 05/23/21 06:50 87 20 05/23/21 06:41 79 26 H 05/23/21 06:30 90 27 H 05/23/21 06:21 88 14 05/23/21 06:11 90 22 05/23/21 06:00 87 22 05/23/21 05:51 88 24 05/23/21 05:41 99 H 15 05/23/21 05:30 93 H 20 05/23/21 05:20 87 16 05/23/21 05:14 85 05/23/21 05:11 84 20 05/23/21 05:00 91 H 27 H 05/23/21 04:51 84 21 05/23/21 04:41 78 24 05/23/21 04:30 89 23 05/23/21 04:21 80 21 05/23/21 04:11 82 30 H 05/23/21 04:00 97.9 F 89 90 18 05/23/21 03:50 89 15 05/23/21 03:43 86 05/23/21 03:41 89 23 05/23/21 03:31 87 21 05/23/21 03:21 80 21 05/23/21 03:11 91 H 23 05/23/21 03:00 88 22 05/23/21 02:51 87 30 H 05/23/21 02:41 86 25 H 05/23/21 02:31 94 H 21 05/23/21 02:21 79 13 05/23/21 02:11 76 23 05/23/21 02:00 88 24 05/23/21 01:51 89 22 05/23/21 01:41 84 21 05/23/21 01:31 82 24 05/23/21 01:21 86 32 H 05/23/21 01:11 86 16 05/23/21 01:01 77 24 05/23/21 00:51 77 24 05/23/21 00:41 83 15 05/23/21 00:31 78 25 H 05/23/21 00:21 86 16 05/23/21 00:11 78 18 05/23/21 00:00 97.8 F 79 90 18 05/22/21 23:51 87 23 05/22/21 23:47 87 19 05/22/21 23:41 88 22 05/22/21 23:31 86 17 05/22/21 23:21 82 26 H 05/22/21 23:11 81 29 H 05/22/21 23:00 87 20 05/22/21 22:51 94 H 22 05/22/21 22:41 93 H 23 05/22/21 22:31 87 24 05/22/21 22:21 89 26 H 05/22/21 22:11 95 H 11 L 05/22/21 22:02 87 05/22/21 22:01 90 05/22/21 22:00 87 22 12 05/22/21 21:51 90 17 05/22/21 21:41 85 18 05/22/21 21:31 85 15 05/22/21 21:21 97 H 25 H 05/22/21 21:11 95 H 16 05/22/21 21:00 93 H 19 05/22/21 20:50 87 21 05/22/21 20:40 88 18 05/22/21 20:30 88 13 05/22/21 20:20 91 H 16 05/22/21 20:10 91 H 27 H 05/22/21 20:03 05/22/21 20:00 97.8 F 91 H 90 18 05/22/21 19:50 90 18 05/22/21 19:40 89 28 H 05/22/21 19:30 89 15 05/22/21 19:20 89 20 05/22/21 19:10 88 22 05/22/21 19:00 105 H 32 H 01/26/22 18:50 89 18 05/22/21 18:40 79 9 L 05/22/21 18:30 83 24 05/22/21 18:20 77 20 05/22/21 18:10 86 16 05/22/21 18:00 79 15 05/22/21 17:50 84 21 05/22/21 17:40 83 24 05/22/21 17:30 80 19 05/22/21 17:20 97 H 22 05/22/21 17:10 82 20 05/22/21 17:00 90 19 05/22/21 16:58 92 H 05/22/21 16:50 92 H 22 05/22/21 16:40 83 20 05/22/21 16:30 93 H 16 05/22/21 16:20 93 H 25 H 05/22/21 16:14 05/22/21 16:00 98.3 F 94 H 18 05/22/21 12:40 94 H 19 05/22/21 12:30 107 H 31 H 05/22/21 12:20 86 22 05/22/21 12:10 82 19 05/22/21 12:00 97.9 F 88 84 17 BP Pulse Ox 05/23/21 11:48 05/23/21 10:41 166/118 98 05/23/21 10:30 166/118 94 05/23/21 10:21 174/124 97 05/23/21 10:11 176/117 97 05/23/21 10:00 176/117 94 05/23/21 09:51 172/113 95 05/23/21 09:41 191/120 95 05/23/21 09:30 191/120 05/23/21 09:25 195/100 05/23/21 09:24 195/100 05/23/21 09:21 195/129 05/23/21 09:11 190/131 95 05/23/21 09:00 190/131 100 05/23/21 08:51 180/128 99 05/23/21 08:50 05/23/21 08:41 174/126 97 05/23/21 08:39 96 05/23/21 08:30 174/126 97 05/23/21 08:21 184/119 98 05/23/21 08:15 98 05/23/21 08:11 179/104 97 05/23/21 08:00 179/104 96 05/23/21 07:51 177/124 96 05/23/21 07:41 184/100 96 05/23/21 07:30 161/105 97 05/23/21 07:20 180/112 97 05/23/21 07:10 176/107 95 05/23/21 07:00 176/107 95 05/23/21 06:50 211/132 94 05/23/21 06:41 184/100 92 05/23/21 06:30 184/100 95 05/23/21 06:21 183/98 94 05/23/21 06:11 174/110 94 05/23/21 06:00 174/122 88 05/23/21 05:51 171/114 92 05/23/21 05:41 152/119 94 05/23/21 05:30 152/119 97 05/23/21 05:20 173/126 93 05/23/21 05:14 163/117 05/23/21 05:11 163/117 97 05/23/21 05:00 163/117 99 05/23/21 04:51 138/104 90 05/23/21 04:41 145/105 85 05/23/21 04:30 145/105 98 05/23/21 04:21 168/127 84 05/23/21 04:11 165/117 88 05/23/21 04:00 165/117 94 05/23/21 03:50 166/106 93 05/23/21 03:43 175/115 05/23/21 03:41 179/115 98 05/23/21 03:31 150/112 98 05/23/21 03:21 150/112 95 05/23/21 03:11 150/112 94 05/23/21 03:00 171/117 95 05/23/21 02:51 147/93 96 05/23/21 02:41 147/93 92 05/23/21 02:31 147/93 93 05/23/21 02:21 147/93 94 05/23/21 02:11 147/93 92 05/23/21 02:00 147/93 83 L 05/23/21 01:51 165/78 89 05/23/21 01:41 165/78 89 05/23/21 01:31 165/78 100 05/23/21 01:21 165/78 95 05/23/21 01:11 165/78 98 05/23/21 01:01 165/78 84 05/23/21 00:51 152/90 83 L 05/23/21 00:41 152/90 92 05/23/21 00:31 152/90 90 05/23/21 00:21 152/90 90 05/23/21 00:11 152/90 93 05/23/21 00:00 152/90 94 05/22/21 23:51 145/110 98 05/22/21 23:47 145/110 97 05/22/21 23:41 145/110 94 05/22/21 23:31 145/110 90 05/22/21 23:21 145/110 86 05/22/21 23:11 145/110 94 05/22/21 23:00 145/110 93 05/22/21 22:51 176/104 94 05/22/21 22:41 176/104 93 05/22/21 22:31 176/104 98 05/22/21 22:21 176/104 95 05/22/21 22:11 176/104 97 05/22/21 22:02 176/104 05/22/21 22:01 176/104 05/22/21 22:00 176/104 95 05/22/21 21:51 162/107 98 05/22/21 21:41 162/107 95 05/22/21 21:31 162/107 98 05/22/21 21:21 162/107 97 05/22/21 21:11 162/107 95 05/22/21 21:00 161/102 96 05/22/21 20:50 161/102 95 05/22/21 20:40 161/102 98 05/22/21 20:30 161/102 96 05/22/21 20:20 161/102 97 05/22/21 20:10 161/102 97 05/22/21 20:03 95 05/22/21 20:00 161/102 94 05/22/21 19:50 161/108 94 05/22/21 19:40 161/108 95 05/22/21 19:30 161/108 94 05/22/21 19:20 161/108 95 05/22/21 19:10 161/108 97 05/22/21 19:00 161/108 92 05/22/21 18:50 161/108 95 05/22/21 18:40 161/108 94 05/22/21 18:30 161/108 91 05/22/21 18:20 161/108 96 05/22/21 18:10 161/108 94 05/22/21 18:00 161/108 92 05/22/21 17:50 162/100 91 05/22/21 17:40 162/100 92 05/22/21 17:30 162/100 92 05/22/21 17:20 162/100 94 05/22/21 17:10 162/100 91 05/22/21 17:00 162/100 94 05/22/21 16:58 151/106 05/22/21 16:50 151/106 92 05/22/21 16:40 151/106 93 05/22/21 16:30 151/106 94 05/22/21 16:20 151/106 93 05/22/21 16:14 151/106 05/22/21 16:00 94 05/22/21 12:40 161/105 97 05/22/21 12:30 161/105 96 05/22/21 12:20 161/105 99 05/22/21 12:10 161/105 98 05/22/21 12:00 161/105 99 - Physical Examination General: No Apparent Distress HEENT: Positive: PERRL Neck: Positive: trachea midline Cardiac: Positive: Reg Rate and Rhythm Lungs: Positive: Normal Breath Sounds Neuro: Positive: Grossly Intact Abdomen: Positive: Soft, Active Bowel Sounds Skin: Negative: Rash, Suspicious Lesions, Ulceration Extremities: Present: upper extr. pulses. Absent: edema - Labs and Meds Coagulation 05/22/21 Range/Units 14:18 PT 14.3 (12.2-14.9) Sec. INR 1.00 (0.87-1.13) APTT 55.3 H (24.2-36.6) Sec. CBC 05/22/21 05/22/21 05/23/21 Range/Units 14:40 20:06 03:15 WBC 6.7 6.7 5.4 (4.5-11.0) K/mm3 RBC 4.28 4.34 4.33 (3.65-5.03) M/mm3 Hgb 11.8 11.6 L 11.9 (11.8-15.2) gm/dl Hct 37.4 38.0 38.1 (35.5-45.6) % Plt Count 187 199 179 (140-440) K/mm3 Lymph # (Auto) 1.9 2.4 1.8 (1.2-5.4) K/mm3 [place] # (Auto) 0.7 0.9 H 0.7 (0.0-0.8) K/mm3 Eos # (Auto) 0.2 0.2 0.2 (0.0-0.4) K/mm3 Baso # (Auto) 0.1 0.0 0.0 (0.0-0.1) K/mm3 05/23/21 Range/Units 08:15 WBC 6.0 (4.5-11.0) K/mm3 RBC 4.41 (3.65-5.03) M/mm3 Hgb 11.8 (11.8-15.2) gm/dl Hct 38.3 (35.5-45.6) % Plt Count 204 (140-440) K/mm3 Lymph # (Auto) 1.8 (1.2-5.4) K/mm3 [place] # (Auto) 0.7 (0.0-0.8) K/mm3 Eos # (Auto) 0.2 (0.0-0.4) K/mm3 Baso # (Auto) 0.0 (0.0-0.1) K/mm3 Comprehensive Metabolic Panel 05/22/21 05/23/21 Range/Units 11:42 03:15 Sodium 141 141 (137-145) mmol/L Potassium 5.0 4.0 (3.6-5.0) mmol/L Chloride 106.8 108.0 H (98-107) mmol/L Carbon Dioxide 22 19 L (22-30) mmol/L BUN 15 14 (9-20) mg/dL Creatinine 1.5 H 1.4 H (0.8-1.3) mg/dL Glucose 103 H 94 (75-100) mg/dL Calcium 9.0 8.9 (8.4-10.2) mg/dL - Imaging and Cardiology Echo: report reviewed - Telemetry EKG Rhythm: Sinus Rhythm - EKG Sinus rhythms and dysrhythmias: sinus rhythm, sinus tachycardia Repolarization changes or abnormalities: nonspecific abnormality, ST segment, and/or T wave
[2021-05-23] MEDS: amLODIPine 5 MG TAB PO SCH (12:27)
[2021-05-23] MEDS ORDERED: APIXABAN 5 MG TAB PO SCH (13:00)
[2021-05-23] MEDS: hydrALAZINE 100 MG TAB PO SCH ×2 (13:42→22:04)
[2021-05-23 13:46] LABS: Hematocrit 37.2 % (35.5-45.6); Hemoglobin 11.7 gm/dl (11.8-15.2); Mean Corpuscular HGB Conc 32 % (32-34); Mean Corpuscular Volume 88 fl (84-94); Red Blood Count 4.24 M/mm3 (3.65-5.03); Red Cell Distribution Width 15.1 % (13.2-15.2)
[2021-05-23 13:48] LABS: Platelet Count 168 K/mm3 (140-440)
[2021-05-23 13:55] LABS: INR 1.07 (0.87-1.13)
[2021-05-23 13:56] LABS: Partial Thromboplastin Time 33.2 Sec. (24.2-36.6)
[2021-05-23] MEDS: APIXABAN 5 MG TAB PO SCH ×2 (13:57→22:08)
[2021-05-23] MEDS: HYDROmorphone 1 MG/1 ML INJ IV PRN (19:44)
[2021-05-23] MEDS: ACETAMINOPHEN 325 MG TAB PO PRN (22:04)
[2021-05-24] MEDS: HYDROmorphone 1 MG/1 ML INJ IV PRN (04:38)
[2021-05-24] MEDS: hydrALAZINE 100 MG TAB PO SCH ×3 (04:47→16:10)
[2021-05-24 05:41] LABS: Calcium 8.7 mg/dL (8.4-10.2)
[2021-05-24] MEDS: IPRATROPIUM/ALBUTEROL SULFATE 3 ML AMPUL.NEB IH SCH ×2 (07:53→14:50)
--- NOTE | 2021-05-24 08:18 | Discharge Summary ---
Providers - Providers Date of Admission: 05/21/21 04:30 Date of discharge: 05/24/21 Attending physician: LIZABETH FLOYD MD 05/21/21 03:04 Consult to Physician [CONS] Urgent Comment: Dr. Monk spoke with Dr. Gresham @ [phone] Consulting Provider: HUBERT GRESHAM Physician Instructions: Reason For Exam: b/l pulmonary emboli 05/21/21 04:30 Consult to Dietitian/Nutrition [CONS] Routine Physician Instructions: Reason For Exam: Reason for Consult: Diet education 05/21/21 04:41 Consult to Physician [CONS] Routine Comment: noted/ saji Consulting Provider: GAURANG RAMAN Physician Instructions: Reason For Exam: chf Primary care physician: RECYCLING SORTER Hospitalization Reason for admission: shortness of breath Condition: Stable Hospital course: History of present illness: 60-year-old male with a past medical history morbid obesity, CHF, hypertension, recently diagnosed renal insufficiency, and sleep apnea (CPAP at night) presents to the hospital complaining of shortness of breath x1 day. Patient experiencing dyspnea worse on exertion. Patient called EMS from work. EMS reports room air saturation in low 90s. Patient placed on supplemental oxygen with improvement in oxygen saturation, shortness of breath, and chest tightness. Patient has been compliant with his medications. He states he was last admitted to in January 2021 to [facility] and underwent cardiac work-up including stress testing. He was diagnosed with CHF and denies diagnosis of ischemia. His physicians are affiliated with [facility]. He is vaccinated for Covid and has scheduled a booster this week. He denies fever. Admitted to [facility] Hospital Course: 05/21: Continue heparin gtt, pending ECHO. CT angiogram appears to demonstrate some right heart strain on my read but will await ECHO. Patient hemodynamically stable and in no distress. Pending cardiology and vascular evaluation. 05/22: RV strain noted on ECHO. Plan for EKOS by vascular surgery today. 05/23: s/p ekos. On room air on my encounter. Catheters to be withdrawn today. Will initiate eliquis 10 mg x 7 day total therapy and then transition to eliquis 5 mg po bid. Plan for d/c tomorrow. Anti-HTN med adjustments noted. 05/24: Discharge home today. Will be sent home on rx for Eliquis, Medrol dose pa k, hydralazine, metoprolol, norvasc, imdur Assessment and Plan: (1) Acute respiratory failure with hypoxia Current Visit: Yes Status: Acute Plan to address problem: Oxygen via nasal cannula, wean as sats tolerate. CT angiogram confirms bilateral central pulmonary emboli. DuoNeb by nebulizer every 4 hours. Albuterol via nebulizer every 4 hours as needed. Lasix 40 mg IV daily. --> lasix 20 mg po daily Echo 05/21/2021-left ventricular systolic function is borderline EF 45 to 50%. Mild LVH. Right ventricle is mildly hypokinetic and mildly dilated. Right ventricular systolic function could not be assessed. Atrial septum is bowed toward the left consistent with elevated right atrial pressure. Mild pulmonic regurgitation Vascular surgery evaluation Cardiology consultation (2) Bilateral pulmonary embolism Current Visit: Yes Status: Acute Plan to address problem: Oxygen via nasal cannula 3 to 5 L/min. CT angiogram confirms bilateral central pulmonary emboli. DuoNeb by nebulizer every 4 hours. Albuterol via nebulizer every 4 hours as needed. Echo 05/21/2021-left ventricular systolic function is borderline EF 45 to 50%. Mild LVH. Right ventricle is mildly hypokinetic and mildly dilated. Right ventricular systolic function could not be assessed. Atrial septum is bowed toward the left consistent with elevated right atrial pressure. Mild pulmonic regurgitation Vascular surgery evaluation, s/p ekos. Cardiology consultation - d/c heparin, start eliquis 10 mg po bid x 7 days, transition to 5 mg po bid. (3) Chronic Kidney Disease Current Visit: Yes Status: Acute Plan to address problem: Avoid nephrotoxic drugs. Renally dose medication. Recheck BMP in the morning if needed will consult nephrology (4) History of CHF (congestive heart failure) Current Visit: Yes Status: Acute Plan to address problem: Fluid restriction. Daily weight. Maintain input output. Echocardiogram. Lasix 40 mg IV daily. Cardiology evaluation (5) Morbid obesity Current Visit: Yes Status: Acute Plan to address problem: Patient counseled regarding weight reduction. Outpatient follow-up with bar iatric surgery (6) Sleep apnea Current Visit: Yes Status: Acute Plan to address problem: Oxygen via nasal cannula 3 to 5 L/min. DuoNeb by nebulizer every 4 hours. Albuterol via nebulizer every 4 hours as needed. (7) Uncontrolled hypertension Current Visit: Yes Status: Acute Plan to address problem: IV labetalol for hypertension. Lisinopril 5 mg p.o. daily. Continue home medication (8) DVT prophylaxis Current Visit: Yes Status: Acute Plan to address problem: Patient is on heparin drip per DVT prophylaxis. Pepcid 20 mg p.o. twice daily for GI prophylaxis. Patient is a full code #Advance care planning Disease education conducted, care plan discussed, diagnoses discussed, prognosis discussed, patient is full code, patient acknowledges understanding and agree with care plan, +30 minutes. (9) Acute gout flare - hx of gout - cannot admin colchicine or indomethacin due torenal fx. - given Solumedrol 40 mg IV x 1 - will d/c home on medrol dose simona. Disposition: HOME / SELF CARE / HOMELESS Final Discharge Diagnosis (Prints w/discharge instructions): Bilateraly pulmonary embolism Time spent for discharge: 35 Core Measure Documentation - Palliative Care Palliative Care/ Comfort Measures: Not Applicable - Core Measures Any of the following diagnoses?: DVT/PE - VTE Discharge Requirements Deep Vein Thrombosis/Pulmonary Embolism Present on Admission: Yes Has pt received <5 days of overlap therapy or INR<2.0: No Anticoagulant overlap therapy prescribed at discharge: No Contraindication No Overlap Therapy order at DC: Not Indicated (eliquis on discharge) Exam - Physical Exam Narrative exam: General appearance: Present: no acute distress, well-nourished, morbid obesity, currently on nasal cannula. - EENT Eyes: Present: PERRL ENT: hearing intact, clear oral mucosa - Neck Neck: Present: supple, normal ROM - Respiratory Respiratory effort: normal Respiratory: bilateral: rales - Cardiovascular Heart Sounds: Present: S1 & S2. Absent: rub, click - Extremities Extremities: pulses symmetrical Extremity abnormal: edema Peripheral Pulses: within normal limits - Abdominal General gastrointestinal: Present: soft, non-tender, non-distended, normal bowel sounds Male genitourinary: Present: normal - Integumentary Integumentary: Present: clear, warm, dry. EKOS catheter in place. - Musculoskeletal Musculoskeletal: gait normal, strength equal bilaterally - Psychiatric Psychiatric: appropriate mood/affect, intact judgment & insight - Neurologic Neurologic: CNII-XII intact, moves all extremities - Constitutional Vitals: Temp Pulse Resp BP Pulse Ox 97.7 F 94 H 28 H 145/101 97 05/24/21 04:00 05/24/21 07:00 05/24/21 07:00 05/24/21 07:00 05/24/21 07:53 Plan Plan of Treatment: Rolydeloris Logan you were admitted for bilateral pulmonary embolism which was the reason for your shortness of breath. We started you on IV blood thinners during your hospitalization. We also consulted vascular surgery and cardiology to evaluate you. Based on your echo findings, you had right heart strain which was an indication for EKOS catheter directed thrombolysis. You were successfully treated with this. You will be initiated on a blood thinner called Eliquis. You will need to take 10 mg tablets twice a day for 6 more days and then start 5 mg tablets twice a day. Prescription for Eliquis was transmitted to your pharmacy. On your last day we also noted you had an acute gout flare for which we gave you Solumedrol. You will be rx a medrol dose simona which was also transmitted to your pharmacy. You remainder medication are: Norvasc 5 mg p.o. daily, hydralazine 100 mg p.o. every 8 hour, Imdur ER 30 mg p.o. daily, metoprolol 100 mg p.o. twice daily. We recommend you follow-up outpatient with Dr. Gresham, vascular surgery. We also recommend he follow-up outpatient with , cardiology. Please follow-up with your primary care physician [facility]. Follow up with: HUBERT GRESHAM MD [Staff Physician] - 14 Days JACOB HARRIS MD [Staff Physician] - 7 Days Prescriptions: amLODIPine 5 mg PO QDAY 30 Days #30 tablet hydrALAZINE [Apresoline TAB] 100 mg PO Q8HR 30 Days #90 tab Apixaban [Eliquis] 10 mg PO Q12HR 6 Days #12 tablet Apixaban [Eliquis] 5 mg PO BID 30 Days #60 tab ISOSORBIDE MONOnitrate [Imdur ER] 30 mg PO QDAY 30 Days #30 tablet Metoprolol [Lopressor TAB] 100 mg PO BID 30 Days #60 tablet methylPREDNISolone [Medrol 4MG DOSEPAK (21 tabs)] 4 mg PO DAILY 6 Days #21 tab
[2021-05-24] MEDS ORDERED: methylPREDNISolone Sod Succinate 40 MG/1 ML INJ IV SCH (10:30)
[2021-05-24] MEDS: METOPROLOL TARTRATE 50 MG TAB PO SCH (10:49)
[2021-05-24] MEDS: FAMOTIDINE 20 MG TAB PO SCH (10:49)
[2021-05-24] MEDS: APIXABAN 5 MG TAB PO SCH (10:50)
[2021-05-24] MEDS: amLODIPine 5 MG TAB PO SCH (10:50)
[2021-05-24] MEDS: INSULIN LISPRO 100 UNIT/ML SUB-Q SCH ×3 (10:50→17:53)
--- NOTE | 2021-05-24 11:34 | Progress Note ---
Assessment and Plan Patient is 52-year-old male with a past medical history of hypertension, CHF, morbid obesity, renal insufficiency, and sleep apnea who presents to the ED for shortness of breath x1 day prior to admission. Acute hypoxic respiratory failure-patient on NC Bilateral pulmonary embolisms-vascular following Hypertensive urgency CKD History of CHF Morbid obesity Echo 05/21/2021-left ventricular systolic function is borderline EF 45 to 50%. Mild LVH. Right ventricle is mildly hypokinetic and mildly dilated. Right ventricular systolic function could not be assessed. Atrial septum is bowed toward the left consistent with elevated right atrial pressure. Mild pulmonic regurgitation Patient had Lexiscan stress test in 01/2020 showed no ischemia EF 54% Plan: Continue hydralazine 100 mg p.o. every 8 hours and continue amlodipine 5 mg p.o. daily Continue Imdur 30 mg p.o. daily,metoprolol 100 mg p.o. twice daily Cardiac status stable for discharge Patient should follow up with primary cardiologists in 1-2 weeks Patient seen in conjunction with Dr. Penn who agrees with this plan of care - Patient Problems (1) Acute respiratory failure Current Visit: Yes Status: Acute (2) Bilateral pulmonary embolism Current Visit: Yes Status: Acute (3) CRI (chronic renal insufficiency) Current Visit: Yes Status: Acute (4) History of CHF (congestive heart failure) Current Visit: Yes Status: Acute (5) Morbid obesity Current Visit: Yes Status: Acute (6) Sleep apnea Current Visit: Yes Status: Acute (7) Uncontrolled hypertension Current Visit: Yes Status: Acute Subjective Date of service: 05/24/21 Principal diagnosis: Bilateral PEs Interval history: Patient resting in bed in no acute distress Patient sinus 90s on monitor no events Objective Vital Signs Temp Pulse Pulse Pulse Resp Resp BP 05/24/21 10:53 98 H 165/104 05/24/21 10:50 99 H 165/104 05/24/21 10:49 99 H 165/104 05/24/21 08:04 96 H 20 05/24/21 08:00 98.2 F 05/24/21 07:53 05/24/21 07:00 94 H 28 H 145/101 05/24/21 06:00 96 H 19 128/98 05/24/21 05:00 83 20 143/88 05/24/21 04:38 35 H 05/24/21 04:00 97.7 F 92 H 92 H 28 H 119/69 05/24/21 03:00 86 21 127/96 05/24/21 02:00 96 H 14 127/96 05/24/21 01:01 85 27 H 150/87 05/24/21 00:40 90 05/24/21 00:00 97.5 F L 94 H 25 H 129/90 05/23/21 23:04 20 05/23/21 23:03 97 H 17 137/89 05/23/21 23:00 95 H 95 H 17 137/89 05/23/21 22:36 23 05/23/21 22:31 104 H 13 135/95 05/23/21 22:06 13 05/23/21 22:05 96 H 135/95 05/23/21 22:04 29 H 05/23/21 21:01 95 H 14 146/94 05/23/21 20:45 91 H 18 05/23/21 20:00 99.3 F 95 H 13 168/108 05/23/21 19:45 105 H 171/119 05/23/21 19:44 17 05/23/21 19:23 149 H 150/87 05/23/21 17:00 99 H 25 H 145/99 05/23/21 16:00 84 98 H 22 150/94 05/23/21 15:41 33 H 162/105 05/23/21 15:31 14 162/105 05/23/21 15:21 101 H 22 162/105 05/23/21 15:11 103 H 26 H 169/104 05/23/21 15:00 98.4 F 101 H 16 169/104 05/23/21 14:51 102 H 18 158/110 05/23/21 14:41 106 H 24 178/104 05/23/21 14:30 98 H 21 178/104 05/23/21 14:21 98 H 20 174/96 05/23/21 14:11 99 H 22 166/115 05/23/21 14:00 93 H 20 166/115 05/23/21 13:51 86 20 159/105 05/23/21 13:41 88 20 158/95 05/23/21 13:30 87 29 H 158/95 05/23/21 13:21 87 23 150/91 05/23/21 13:11 88 17 153/93 05/23/21 13:00 88 18 153/93 05/23/21 12:51 88 18 148/99 05/23/21 12:41 83 16 150/96 05/23/21 12:30 83 20 150/96 05/23/21 12:27 88 125/90 05/23/21 12:21 81 29 H 125/90 05/23/21 12:11 77 24 173/102 05/23/21 12:10 98 H 05/23/21 12:00 81 25 H 173/102 05/23/21 11:51 76 25 H 165/102 05/23/21 11:48 98.1 F 05/23/21 11:41 74 18 145/85 Pulse Ox 05/24/21 10:53 05/24/21 10:50 05/24/21 10:49 05/24/21 08:04 05/24/21 08:00 05/24/21 07:53 97 05/24/21 07:00 97 05/24/21 06:00 98 05/24/21 05:00 95 05/24/21 04:38 05/24/21 04:00 98 05/24/21 03:00 95 05/24/21 02:00 94 05/24/21 01:01 93 05/24/21 00:40 05/24/21 00:00 96 05/23/21 23:04 05/23/21 23:03 96 05/23/21 23:00 95 05/23/21 22:36 05/23/21 22:31 94 05/23/21 22:06 05/23/21 22:05 05/23/21 22:04 05/23/21 21:01 95 05/23/21 20:45 05/23/21 20:00 95 05/23/21 19:45 05/23/21 19:44 05/23/21 19:23 93 05/23/21 17:00 94 05/23/21 16:00 98 05/23/21 15:41 95 05/23/21 15:31 05/23/21 15:21 97 05/23/21 15:11 05/23/21 15:00 05/23/21 14:51 96 05/23/21 14:41 98 05/23/21 14:30 96 05/23/21 14:21 98 05/23/21 14:11 98 05/23/21 14:00 05/23/21 13:51 97 05/23/21 13:41 95 05/23/21 13:30 05/23/21 13:21 96 05/23/21 13:11 95 05/23/21 13:00 95 05/23/21 12:51 96 05/23/21 12:41 96 05/23/21 12:30 96 05/23/21 12:27 05/23/21 12:21 90 05/23/21 12:11 05/23/21 12:10 98 05/23/21 12:00 97 05/23/21 11:51 95 05/23/21 11:48 05/23/21 11:41 96 - Physical Examination General: No Apparent Distress HEENT: Positive: PERRL Neck: Positive: trachea midline Cardiac: Positive: Reg Rate and Rhythm Lungs: Positive: Normal Breath Sounds Neuro: Positive: Grossly Intact Abdomen: Positive: Soft, Active Bowel Sounds Skin: Negative: Rash, Suspicious Lesions, Ulceration Extremities: Present: upper extr. pulses. Absent: edema - Labs and Meds Coagulation 05/23/21 Range/Units 13:18 PT 15.1 H (12.2-14.9) Sec. INR 1.07 (0.87-1.13) APTT 33.2 (24.2-36.6) Sec. CBC 05/23/21 Range/Units 13:18 WBC 6.7 (4.5-11.0) K/mm3 RBC 4.24 (3.65-5.03) M/mm3 Hgb 11.7 L (11.8-15.2) gm/dl Hct 37.2 (35.5-45.6) % Plt Count 168 (140-440) K/mm3 Comprehensive Metabolic Panel 05/23/21 05/24/21 Range/Units 13:18 04:58 Sodium 141 (137-145) mmol/L Potassium 4.2 (3.6-5.0) mmol/L Chloride 107.8 H (98-107) mmol/L Carbon Dioxide 21 L (22-30) mmol/L BUN 16 (9-20) mg/dL Creatinine 1.4 H 1.7 H (0.8-1.3) mg/dL Glucose 107 H (75-100) mg/dL Calcium 8.7 (8.4-10.2) mg/dL - Imaging and Cardiology Echo: report reviewed - Telemetry EKG Rhythm: Sinus Rhythm - EKG Sinus rhythms and dysrhythmias: sinus rhythm, sinus tachycardia Repolarization changes or abnormalities: nonspecific abnormality, ST segment, and/or T wave
[2021-05-24 17:34] VITALS: BP 154/108
== END 2021-05-24 18:06 | disposition home or self-care (01) | DRG 175 ==
LOC: ED 22:10 → IMCU 05-21 04:30
PROVIDERS: ADMIT Hospitalist; ATTEND Internal Medicine
PROC: 02HR33Z Insertion of Infusion Device into Left Pulmonary Artery, Percutaneous Approach (ICD-10-PCS; principal; 2021-05-22)
PROC: 02HQ33Z Insertion of Infusion Device into Right Pulmonary Artery, Percutaneous Approach (ICD-10-PCS; 2021-05-22)
PROC: 3E06317 Introduction of Other Thrombolytic into Central Artery, Percutaneous Approach (ICD-10-PCS; 2021-05-22)
DX: I26.99 Other pulmonary embolism without acute cor pulmonale (principal); J96.01 Acute respiratory failure with hypoxia; I13.0 Hypertensive heart and chronic kidney disease with heart failure and stage 1 through stage 4 chronic kidney disease, or unspecified chronic kidney disease; Z68.43 Body mass index [BMI] 50.0-59.9, adult; E66.01 Morbid (severe) obesity due to excess calories; N18.9 Chronic kidney disease, unspecified; I50.9 Heart failure, unspecified; G47.30 Sleep apnea, unspecified; Z20.822 Contact with and (suspected) exposure to COVID-19; I16.0 Hypertensive urgency; Z86.79 Personal history of other diseases of the circulatory system
CPT/HCPCS: 36415; 37211; 71045; 71275; 80048; 80053; 82550; 82553; 82565; 82962; 83880; 84484; 85025; 85027; 85384; 85520; 85610; 85730; 93005; 93010; 93306; 94640; 94760; G0378; J3490; Q0162; C1751; C1757; C1894; J0690; J1170; J1644; J1940; J2250; J2270; J2920; J2997; J3010; J7030; J7040; Q9967; U0003